=== PATIENT | female | born 1970 | race Caucasian/White ===

== ENCOUNTER 2021-04-19 16:43 | Emergency (ER) | payer MEDICAID, OTHER ==
[~2021-04-19] VITALS: Ht 167 cm; Wt 158.0 kg
--- NOTE | 2021-04-19 17:30 | ED GI ---
General Chief Complaint: Rect Problems Stated Complaint: RECTAL PAIN/BLEEDING Source of Information: Patient Exam Limitations: No Limitations (DAKOTA BANUELOS MD) History of Present Illness Date Seen by Provider: April 19, 2021 Time Seen by Provider: 17:15 Initial Comments Patient is a 50-year-old female who presents to the emergency department today with a chief complaint of rectal bleeding. Patient states she started noticing blood in and around her stool yesterday and had what she describes as a larger amount of bloody stool today. Patient denies any abdominal pain, nausea, vomiting or diarrhea. She does state that she has been straining to have a bowel movement over the last few days. Patient has a host of other complaints including chronic pain, swelling in her legs, fatigue. She has a physician in [facility] that is following her for her other myriad of complaints. Her primary complaint today is the blood per rectum. Patient states that she is concerned because her is currently incarcerated and unable to help her at home. She states that he is usually typically her primary caregiver and assist her with bathroom and toileting. She was concerned that she might have a sore on her rectum that was causing the bleeding. She states she has never had hemorrhoids before, she had all of her children by section and never suffered from them. No recent fevers, chills, productive cough. She is a smoker, also smokes marijuana to control her pain. As well as on Suboxone. All other review of systems reviewed and negative except as stated above. Timing/Duration: 1-2 Days Associated Symptoms: Denies Symptoms (DAKOTA BANUELOS MD) Allergies and Home Medications Patient Home Medication List Home Medication List Reviewed: Yes (DAKOTA BANUELOS MD) Review of Systems Review of Systems Constitutional: see HPI EENTM: No Symptoms Reported Cardiovascular: No Symptoms Reported Gastrointestinal: Abdomen Distended, Blood Streaked Stools, Other (Painful bowel movements) Genitourinary: No Symptoms Reported Musculoskeletal: no symptoms reported Skin: no symptoms reported Psychiatric/Neurological: Anxiety, Depressed, Other (Chronic pain issues) (DAKOTA BANUELOS MD) All Other Systems Reviewed Negative Unless Noted: Yes (DAKOTA BANUELOS MD) Past Bytwhuq-Xalbev-Ecqdkp Hx Patient Social History Alcohol Use: Denies Use Smoking Status: Current Everyday Smoker Type Used: Cigarettes Recent Hopitalizations: No (DAKOTA BANUELOS MD) Past Medical History Surgeries: Yes Breast, Section, Gallbladder Respiratory: No Cardiac: No Neurological: No Genitourinary: No Gastrointestinal: No Musculoskeletal: No Endocrine: No HEENT: No Cancer: No Psychosocial: Yes Integumentary: No (DAKOTA BANUELOS MD) Physical Exam Vital Signs Vital Signs - First Documented 04/19/21 17:00 Temp 36.3 Pulse 81 Resp 18 B/P (MAP) 125/81 (96) Pulse Ox 99 (REGINA BORGES MD) Vital Signs Capillary Refill : (DAKOTA BANUELOS MD) Height/Weight/BMI Height: '" Weight: lbs. oz. kg; BMI Method: General Appearance: WD/WN, no apparent distress Respiratory: lungs clear, normal breath sounds, no respiratory distress, no accessory muscle use Cardiovascular: regular rate, rhythm Gastrointestinal: non tender, soft, other (Morbid obesity) Rectal: normal rectal tone, heme positive stool (Trace heme positive on bedside fecal occult blood testing) Genital/Rectal: other (Normal rectal tone without external hemorrhoids noted. Patient has palpable internal hemorrhoids. No gross blood on digital rectal examination) Extremities: pedal edema Skin: normal color, warm/dry (DAKOTA BANUELOS MD) Progress/Results/Core Measures Results/Orders Lab Results Laboratory Tests Test 04/19/21 17:34 04/19/21 17:52 Range/Units White Blood Count 8.0 4.3-11.0 10^3/uL Red Blood Count 4.42 3.80-5.11 10^6/uL Hemoglobin 14.1 11.5-16.0 g/dL Hematocrit 43 35-52 % Mean Corpuscular Volume 98 80-99 fL Mean Corpuscular Hemoglobin 32 25-34 pg Mean Corpuscular Hemoglobin Concent 33 32-36 g/dL Red Cell Distribution Width 14.5 10.0-14.5 % Platelet Count 227 130-400 10^3/uL Mean Platelet Volume 10.1 9.0-12.2 fL Immature Granulocyte % (Auto) 1 % Neutrophils (%) (Auto) 55 42-75 % Lymphocytes (%) (Auto) 31 12-44 % Monocytes (%) (Auto) 7 0-12 % Eosinophils (%) (Auto) 6 0-10 % Basophils (%) (Auto) 1 0-10 % Neutrophils # (Auto) 4.4 1.8-7.8 10^3/uL Lymphocytes # (Auto) 2.5 1.0-4.0 10^3/uL Monocytes # (Auto) 0.6 0.0-1.0 10^3/uL Eosinophils # (Auto) 0.5 H 0.0-0.3 10^3/uL Basophils # (Auto) 0.1 0.0-0.1 10^3/uL Immature Granulocyte # (Auto) 0.1 0.0-0.1 10^3/uL Sodium Level 138 135-145 MMOL/L Potassium Level 4.0 3.6-5.0 MMOL/L Chloride Level 100 98-107 MMOL/L Carbon Dioxide Level 22 21-32 MMOL/L Anion Gap 16 H 5-14 MMOL/L Blood Urea Nitrogen 19 H 7-18 MG/DL Creatinine 1.26 0.60-1.30 MG/DL Estimat Glomerular Filtration Rate 45 BUN/Creatinine Ratio 15 Glucose Level 91 70-105 MG/DL Calcium Level 10.0 8.5-10.1 MG/DL (REGINA BORGES MD) Vital Signs/I&O 04/19/21 17:00 Temp 36.3 Pulse 81 Resp 18 B/P (MAP) 125/81 (96) Pulse Ox 99 (REGINA BORGES MD) Progress Progress Note : Progress Note 1800: Assumed care of the patient from Dr. Banuelos pending labs. Patient resting comfortably in bed. Monitor patient. 184: Labs reviewed and showed no significant findings. I did address this with the patient. She is still resting comfortably without complaint of pain. We did discuss constipation issues and concerns for internal hemorrhoids. I also did discuss with her the importance of close follow-up with the surgeon for possible colonoscopy if indicated given her history and presentation. Patient states that she would. S he is transferring here from [place] and transferring her medical care as well. Discharged home with return precautions. Patient verbalized understanding of instructions and agreement with plan. (REGINA BORGES MD) Departure Impression Primary Impression: Hemorrhoids Qualified Codes: K64.9 - Unspecified hemorrhoids Additional Impressions: Constipation Qualified Codes: K59.00 - Constipation, unspecified Rectal bleeding Disposition: HOME, SELF-CARE Condition: Improved Departure-Patient Inst. Decision time for Depature: 18:53 (REGINA BORGES MD) Referrals: JOHN BROOKS,LOCAL PHYSICIAN (PCP) Primary Care Physician [facility] Patient Instructions: Gastrointestinal Bleeding (DC), Hemorrhoids (DC), Constipation, Adult ED Add. Discharge Instructions: All discharge instructions reviewed with patient and/or family. Voiced understanding. You may use MiraLAX or the generic 1 capful twice daily for 3 days and then 1 capful daily thereafter to keep stools soft. You may increase or decrease the dose to keep stools in normal range. Drink plenty of fluids and eat a high- fiber diet. It is very important that you follow-up with the surgeon listed or of your choosing for recheck and further evaluation including possible colonoscopy if indicated. Establish care here. Keep appointment in [place] as previously scheduled. Return for worse pain, vomiting, increased bleeding in your stool or other concerns as needed. DAKOTA BANUELOS MD April 19, 2021 17:30 REGINA BORGES MD April 19, 2021 18:55
[2021-04-19 17:40] LABS: BASOPHILS # (AUTO) 0.1 10^3/uL (0.0-0.1); BASOPHILS % (AUTO) 1 % (0-10); EOSINOPHILS # (AUTO) 0.5 10^3/uL (0.0-0.3); EOSINOPHILS % (AUTO) 6 % (0-10); HEMATOCRIT 43 % (35-52); HEMOGLOBIN 14.1 g/dL (11.5-16.0); LYMPHOCYTES # (AUTO) 2.5 10^3/uL (1.0-4.0); LYMPHOCYTES % (AUTO) 31 % (12-44); MEAN CORPUSCULAR HEMOGLOBIN 32 pg (25-34); MEAN CORPUSCULAR HGB CONC 33 g/dL (32-36); MEAN CORPUSCULAR VOLUME 98 fL (80-99); MEAN PLATELET VOLUME 10.1 fL (9.0-12.2); MONOCYTES # (AUTO) 0.6 10^3/uL (0.0-1.0); MONOCYTES % (AUTO) 7 % (0-12); NEUTROPHILS # (AUTO) 4.4 10^3/uL (1.8-7.8); NEUTROPHILS % (AUTO) 55 % (42-75); PLATELET COUNT 227 10^3/uL (130-400)
[2021-04-19 18:13] LABS: CREATININE SERUM 1.26 MG/DL (0.60-1.30)
[2021-04-19 19:06] VITALS: BP 120/80
== END 2021-04-19 19:06 | disposition home or self-care (01) ==
LOC: ER 16:46
DX: K64.8 Other hemorrhoids (principal); K59.00 Constipation, unspecified; F17.210 Nicotine dependence, cigarettes, uncomplicated
CPT/HCPCS: 36415; 80048; 82274; 85025

== ENCOUNTER 2021-04-27 10:52 | Emergency (ER) | payer MEDICAID ==
[~2021-04-27] VITALS: Ht 170.2 cm; Wt 176.0 kg
[2021-04-27] MEDS ORDERED: fentaNYL INJ 100 MCG/2 ML AMP IVP ONE (12:00)
[2021-04-27 12:51] LABS: BASOPHILS % (AUTO) 0 % (0-10); EOSINOPHILS # (AUTO) 0.2 10^3/uL (0.0-0.3); EOSINOPHILS % (AUTO) 1 % (0-10); HEMATOCRIT 38 % (35-52); HEMOGLOBIN 12.6 g/dL (11.5-16.0); LYMPHOCYTES # (AUTO) 1.6 10^3/uL (1.0-4.0); LYMPHOCYTES % (AUTO) 12 % (12-44); MEAN CORPUSCULAR HEMOGLOBIN 32 pg (25-34); MEAN CORPUSCULAR HGB CONC 33 g/dL (32-36); MEAN CORPUSCULAR VOLUME 97 fL (80-99); MEAN PLATELET VOLUME 10.1 fL (9.0-12.2); MONOCYTES # (AUTO) 0.8 10^3/uL (0.0-1.0); MONOCYTES % (AUTO) 6 % (0-12); NEUTROPHILS % (AUTO) 79 % (42-75); PLATELET COUNT 203 10^3/uL (130-400); WHITE BLOOD COUNT 12.7 10^3/uL (4.3-11.0)
[2021-04-27 12:57] LABS: ALBUMIN 4.4 GM/DL (3.2-4.5); POTASSIUM 4.7 MMOL/L (3.6-5.0)
[2021-04-27 12:58] LABS: CALCIUM 9.6 MG/DL (8.5-10.1)
[2021-04-27 13:00] LABS: TOTAL PROTEIN 9.3 GM/DL (6.4-8.2)
[2021-04-27 13:01] LABS: BILIRUBIN,TOTAL 0.9 MG/DL (0.1-1.0)
[2021-04-27 13:03] LABS: CREATININE SERUM 1.43 MG/DL (0.60-1.30)
[2021-04-27] MEDS ORDERED: PIPERACILLIN SODIUM/TAZOBACTAM 4.5 GM in NS (IVPB) 100 ML IV ONE (14:30)
[2021-04-27] MEDS ORDERED: NS IV 1000 ML 1,000 ML IV SCH (14:30)
[2021-04-27] MEDS ORDERED: VANCOMYCIN INJECTION 1,000 MG in NS (IVPB) 250 ML IV SCH (14:30)
[2021-04-27 14:35] LABS: INR 0.9 (0.8-1.4); PROTHROMBIN TIME PATIENT 12.5 SEC (12.2-14.7)
[2021-04-27 14:50] LABS: BILIRUBIN,URINE NEGATIVE (NEGATIVE); CLARITY,URINE CLOUDY; COLOR,URINE YELLOW; GLUCOSE, URINE (UA) NEGATIVE (NEGATIVE); KETONES,URINE NEGATIVE (NEGATIVE); LEUKOCYTE ESTERASE ,URINE 3+ (NEGATIVE); NITRITE,URINE POSITIVE (NEGATIVE); PH,URINE 6.5 (5-9); PROTEIN,URINE 2+ (NEGATIVE)
--- NOTE | 2021-04-27 14:55 | Diagnostic Imaging Report ---
INDICATION: Sepsis COMPARISON: None available TECHNIQUE: Single frontal radiograph of the chest dated 04/27/2021 FINDINGS: The cardiac silhouette is within normal limits in size. No significant pulmonary vascular congestion. The left lung is clear. Minimal right basilar interstitial opacities. No significant pleural effusion. No pneumothorax. No acute osseous abnormality. IMPRESSION: Minimal right basilar atelectasis and/or pneumonitis. Dictated by: Dictated on workstation # [id number]
[2021-04-27 15:02] LABS: BACTERIA,URINE LARGE /HPF; RBC,URINE TNTC /HPF; WBC,URINE >100 /HPF
[2021-04-27 15:03] LABS: AMORPHOUS SEDIMENT,UR FEW AMOR PHOSPHATE /LPF; CALCIUM OXALATE CRYSTALS,UR MODERATE /LPF
[2021-04-27] MEDS ORDERED: CEPH500T PO (15:44)
[2021-04-27] MEDS ORDERED: SULF1TAB35 PO (15:44)
--- NOTE | 2021-04-27 15:45 | ED Lower Extremity ---
General Chief Complaint: Lower Extremity Stated Complaint: PAIN IN LEGS Nursing Triage Note: PT TO TRIAGE WITH C/O BILAT LOWER LEG SWELLING. PT STATES THAT THIS IS A CHRONIC CONDITION BUT IT HAS GOTTEN WORSE. Nursing Sepsis Screen: No Definite Risk Source: patient Exam Limitations: no limitations History of Present Illness Date Seen by Provider: Apr 27, 2021 Time Seen by Provider: 11:45 Initial Comments This 50-year-old woman presents to emergency room with primary complaint of lower extremity pain, swelling, and erythema that has been worsening for months but is acutely worse in the past few days. She denies fever. She has recently moved to the [facility] from the [facility] to be near family. She has essentially been homeless for about a year and has been sleeping in a trailer. She now has temporary housing in a hotel through an assistance program. She denies fever. She has had blood in her stools recently also. She reports having history of cellulitis of the lower extremities in the past. Her primary care provider in [place] is Dr. Montenegro. She was previously on Suboxone therapy but was too somnolent with Suboxone. She has recently been changed to hydrocodone for treatment of her chronic pain. She is minimally ambulatory with a walker due to edema and morbid obesity. Allergies and Home Medications Allergies Coded Allergies: povidone-iodine (Verified Allergy, Unknown, 04/27/21) soap (Verified Allergy, Unknown, 04/27/21) Home Medications Cephalexin 500 Mg Tablet, 500 MG PO QID Prescribed by: JAQUAN SAUL on 04/27/21 1544 Sulfamethoxazole/Trimethoprim 1 Each Tablet, 1 EACH PO BID Prescribed by: JAQUAN SAUL on 04/27/21 1544 Patient Home Medication List Home Medication List Reviewed: Yes Review of Systems Constitutional: no symptoms reported EENTM: other (chronic left facial droop) Respiratory: no symptoms reported Cardiovascular: no symptoms reported Gastrointestinal: see HPI Genitourinary: no symptoms reported : No Musculoskeletal: see HPI Skin: no symptoms reported Psychiatric/Neurological: Other (chronic left facial weakness ) Past Kgiztyu-Olocrx-Vncnnp Hx Past Med/Social Hx: Reviewed Nursing Past Med/Soc Hx Patient Social History Alcohol Use: Denies Use Drug of Choice: POT Smoking Status: Current Everyday Smoker Type Used: Cigarettes Recent Infectious Disease Expo: No Recent Hopitalizations: No Seasonal Allergies Seasonal Allergies: No Past Medical History Surgeries: Yes Breast, Section, Gallbladder Respiratory: No Cardiac: No Neurological: Yes Parkinson's Disease, Stroke Genitourinary: No Gastrointestinal: No Musculoskeletal: Yes (Chronic pain) Endocrine: Yes (Morbid obesity) HEENT: No Cancer: No Psychosocial: Yes Integumentary: Yes (cellulitis) Physical Exam Vital Signs Vital Signs - First Documented 04/27/21 04/27/21 11:09 16:02 Temp 36.9 Pulse 95 Resp 19 B/P (MAP) 138/85 (102) Pulse Ox 95 O2 Delivery Room Air Capillary Refill : Less Than 3 Seconds Height, Weight, BMI Height: '" Weight: lbs. oz. 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) Skin: warm/dry, other (erythema and heat of lower legs) Progress/Results/Core Measures Results/Orders Lab Results Laboratory Tests Test 04/27/21 12:44 04/27/21 13:38 04/27/21 14:40 Range/Units White Blood Count 12.7 H 4.3-11.0 10^3/uL Red Blood Count 3.92 3.80-5.11 10^6/uL Hemoglobin 12.6 11.5-16.0 g/dL Hematocrit 38 35-52 % Mean Corpuscular Volume 97 80-99 fL Mean Corpuscular Hemoglobin 32 25-34 pg Mean Corpuscular Hemoglobin Concent 33 32-36 g/dL Red Cell Distribution Width 14.6 H 10.0-14.5 % Platelet Count 203 130-400 10^3/uL Mean Platelet Volume 10.1 9.0-12.2 fL Immature Granulocyte % (Auto) 1 % Neutrophils (%) (Auto) 79 H 42-75 % Lymphocytes (%) (Auto) 12 12-44 % Monocytes (%) (Auto) 6 0-12 % Eosinophils (%) (Auto) 1 0-10 % Basophils (%) (Auto) 0 0-10 % Neutrophils # (Auto) 10.0 H 1.8-7.8 10^3/uL Lymphocytes # (Auto) 1.6 1.0-4.0 10^3/uL Monocytes # (Auto) 0.8 0.0-1.0 10^3/uL Eosinophils # (Auto) 0.2 0.0-0.3 10^3/uL Basophils # (Auto) 0.0 0.0-0.1 10^3/uL Immature Granulocyte # (Auto) 0.1 0.0-0.1 10^3/uL Sodium Level 139 135-145 MMOL/L Potassium Level 4.7 3.6-5.0 MMOL/L Chloride Level 101 98-107 MMOL/L Carbon Dioxide Level 24 21-32 MMOL/L Anion Gap 14 5-14 MMOL/L Blood Urea Nitrogen 21 H 7-18 MG/DL Creatinine 1.43 H 0.60-1.30 MG/DL Estimat Glomerular Filtration Rate 39 BUN/Creatinine Ratio 15 Glucose Level 112 H 70-105 MG/DL Calcium Level 9.6 8.5-10.1 MG/DL Corrected Calcium 9.3 8.5-10.1 MG/DL Total Bilirubin 0.9 0.1-1.0 MG/DL Aspartate Amino Transf (AST/SGOT) 38 H 5-34 U/L Alanine Aminotransferase (ALT/SGPT) 28 0-55 U/L Alkaline Phosphatase 41 40-136 U/L C-Reactive Protein High Sensitivity 3.31 H 0.00-0.50 MG/DL B-Type Natriuretic Peptide < 10.0 <100.0 PG/ML Total Protein 9.3 H 6.4-8.2 GM/DL Albumin 4.4 3.2-4.5 GM/DL Prothrombin Time 12.5 12.2-14.7 SEC INR Comment 0.9 0.8-1.4 Activated Partial Thromboplast Time 20 L 24-35 SEC D-Dimer 0.96 H 0.00-0.49 UG/ML Urine Color YELLOW Urine Clarity CLOUDY Urine pH 6.5 5-9 Urine Specific [place] 1.010 L 1.016-1.022 Urine Protein 2+ H NEGATIVE Urine Glucose (UA) NEGATIVE NEGATIVE Urine Ketones NEGATIVE NEGATIVE Urine Nitrite POSITIVE H NEGATIVE Urine Bilirubin NEGATIVE NEGATIVE Urine Urobilinogen 0.2 < = 1.0 MG/DL Urine Leukocyte Esterase 3+ H NEGATIVE Urine RBC (Auto) 3+ H NEGATIVE Urine RBC TNTC H /HPF Urine WBC >100 H /HPF Urine Squamous Epithelial Cells 2-5 /HPF Urine Renal Epithelial Cells 2-5 /HPF Urine Crystals PRESENT H /LPF Urine Calcium Oxalate Crystals MODERATE H /LPF Urine Amorphous Sediment FEW ANTONIA PHOSPHATE H /LPF Urine Bacteria LARGE H /HPF Urine Casts NONE /LPF Urine Mucus NEGATIVE /LPF Urine Culture Indicated CULTURE PENDING My Orders Orders - JAQUAN LEVY MD BNP (04/27/21 11:55) Cbc With Automated Diff (04/27/21 11:55) Comprehensive Metabolic Panel (04/27/21 11:55) Hs C Reactive Protein (04/27/21 11:55) Fibrin Degradation Products (04/27/21 11:55) Ed Iv/Invasive Line Start (04/27/21 11:55) Fentanyl Inj (Sublimaze Injection) (04/27/21 12:00) Urinalysis (04/27/21 14:21) Urine Culture (04/27/21 14:21) Protime With Inr (04/27/21 14:21) Partial Thromboplastin Time (04/27/21 14:21) Chest 1 View, Ap/Pa Only (04/27/21 14:21) Vital Signs Adult Sepsis Patie Q15M (04/27/21 14:21) Remove Rings In Anticipation O (04/27/21 14:21) Ns Iv 1000 Ml (Sodium Chloride 0.9%) (04/27/21 14:30) Piperacillin Sodium/Tazobactam (Zosyn Vi (04/27/21 14:30) Vancomycin Injection (Vancomycin Injecti (04/27/21 14:30) Cefepime Injection (Maxipime Injection) (04/27/21 16:00) Ceftriaxone For Im Use (Rocephin For Im (04/27/21 16:00) Lidocaine 1% Inj 20 Ml (Xylocaine 1% Inj (04/27/21 16:00) Medications Given in ED Vital Signs/I&O 04/27/21 04/27/21 11:09 16:02 Temp 36.9 Pulse 95 73 Resp 19 18 B/P (MAP) 138/85 (102) 166/64 Pulse Ox 95 O2 Delivery Room Air Room Air Blood Pressure Mean: 102 Progress Progress Note : Progress Note Patient technically met criteria for sepsis with leukocytosis and tachycardia associated with cellulitis and urinary tract infection. She also had an elevat ed D-dimer and ultrasound was not available at the time D-dimer was resulted to evaluate for DVT. Admission was recommended, but patient elected to leave AGAINST MEDICAL ADVICE. She stated she would lose her housing situation if she did not stay the night in her assigned room. She was treated with a Rocephin injection. Antibiotics were prescribed and patient signed out AGAINST MEDICAL ADVICE. Diagnostic Imaging Diagonstic Imaging: Xray Plain Films/CT/US/NM/MRI: chest Comments NAME: SASCHA KELLY [facility] REC#: [id number] PT STATUS: DEP ER : 1970 PHYSICIAN: JAQUAN LEVY MD ADMIT DATE: 04/27/21/ER Signed Date of Exam:04/27/21 CHEST 1 VIEW, AP/PA ONLY INDICATION: Sepsis COMPARISON: None available TECHNIQUE: Single frontal radiograph of the chest dated 04/27/2021 FINDINGS: The cardiac silhouette is within normal limits in size. No significant pulmonary vascular congestion. The left lung is clear. Minimal right basilar interstitial opacities. No significant pleural effusion. No pneumothorax. No acute osseous abnormality. IMPRESSION: Minimal right basilar atelectasis and/or pneumonitis. Dictated by: Dictated on workstation # [id number] Dict: 04/27/21 1450 Trans: 04/27/21 175 [facility] [id number] Interpreted by: AMY SRIVASTAVA MD Electronically signed by: AMY SRIVASTAVA MD 04/27/21 175 Departure Impression Primary Impression: Sepsis Qualified Codes: A41.9 - Sepsis, unspecified organism Additional Impressions: Cellulitis of lower extremity Qualified Codes: L03.119 - Cellulitis of unspecified part of limb Urinary tract infection Qualified Codes: N39.0 - Urinary tract infection, site not specified Immobility Elevated d-dimer Disposition: HOME, SELF-CARE Condition: Improved Departure-Patient Inst. Referrals: NO,LOCAL PHYSICIAN (PCP/Family) Primary Care Physician Patient Instructions: Cellulitis (Skin Infection), Adult (DC), Urinary Tract Infection, Adult ED Add. Discharge Instructions: Admission was advised during this ER visit because of signs of sepsis, cellulitis, urinary tract infection, and unsafe in mobility. Please complete your antibiotics as prescribed. Return to care if you change your mind about admission or if symptoms worsen. All discharge instructions reviewed with patient and/or family. Voiced understanding. Scripts Sulfamethoxazole/Trimethoprim (Bactrim Ds Tablet) 1 Each Tablet 1 EACH PO BID, #14 TAB Prov: JAQUAN LEVY MD 04/27/21 Cephalexin (Cephalexin) 500 Mg Tablet 500 MG PO QID, #28 TAB Prov: JAQUAN LEVY MD 04/27/21 JAQUAN LEVY MD Apr 27, 2021 15:45
[2021-04-27] MEDS ORDERED: CEFEPIME INJECTION 1,000 MG in NS (IVPB) 50 ML IM ONE (16:00)
[2021-04-27] MEDS ORDERED: cefTRIAXone 1,000 MG/2.86 ml vial (IM ONLY) IM ONE (16:00)
[2021-04-27] MEDS ORDERED: LIDOCAINE 1% INJ 20 ML 20 ML VIAL INJ ONE (16:00)
[2021-04-27 16:02] VITALS: BP 166/64
== END 2021-04-27 16:06 | disposition home or self-care (01) ==
LOC: EDUNIT# 10:52 → ER 10:57
DX: A41.9 Sepsis, unspecified organism (principal); L03.119 Cellulitis of unspecified part of limb; N39.0 Urinary tract infection, site not specified; M62.3 Immobility syndrome (paraplegic); R79.1 Abnormal coagulation profile; E66.01 Morbid (severe) obesity due to excess calories; G20 Parkinson's disease; F17.210 Nicotine dependence, cigarettes, uncomplicated; Z91.041 Radiographic dye allergy status; Z68.44 Body mass index [BMI] 60.0-69.9, adult; Z86.73 Personal history of transient ischemic attack (TIA), and cerebral infarction without residual deficits
CPT/HCPCS: 36415; 71045; 80053; 81000; 83880; 85025; 85379; 85610; 85730; 86141; 87088

== ENCOUNTER 2021-04-28 12:52 | Observation (INO) | payer MEDICAID ==
[~2021-04-28] VITALS: Ht 170.2 cm; Wt 178.2 kg
[~2021-04-28 12:52] MED LIST: CEPH500T PO; SULF1TAB35 PO
--- NOTE | 2021-04-28 13:20 | ED General ---
General Chief Complaint: Skin/Wound Problems Stated Complaint: SEPSUS Nursing Triage Note: PT REPORTS TO ED FOR BILATERAL LEG CELLULITIS X'S ONE YEAR ON AND OFF BUT GOT WORSE A WEEK AGO. PT WAS SEEN YESTERDAY BUT CHOSE TO LEAVE DUE TO NOT THINKING CLEARLY. PT WAS BROUGHT TO ROOM 04 VIA WC BY [facility] [employer]. Nursing Sepsis Screen: No Definite Risk Source of Information: Patient Exam Limitations: No Limitations History of Present Illness Date Seen by Provider: Apr 28, 2021 Time Seen by Provider: 13:10 Initial Comments Patient is a 50-year-old female who presents to the emergency department today with a chief complaint of concern for "sepsis". Patient states that she has had redness and swelling in her lower extremities bilaterally for the last year. She states it is gotten worse in the last week. She states she has been so swollen and red that she feels like her legs are being cut off. Patient states that she is also had dysuria, urgency and frequency off and on for the last year as well and it is worsened in the last few days. She denies fevers or chills. No shortness of breath. She states she gets nauseous every time she eats and vomits. She has a primary care physician in [place] who is working up "all my medical problems". Patient states that she was seen here yesterday and told that she needed to be admitted but left AGAINST MEDICAL ADVICE. Patient saying now that she made the wrong decision and would like to be admitted. She is not currently hypotensive, she is awake alert and oriented. She is in no acute distress. All other review of systems reviewed and negative except as stated above. Timing/Duration: Constant, Getting Worse Severity: Severe Associated Systoms: Nausea/Vomiting Allergies and Home Medications Allergies Coded Allergies: Sulfa (Sulfonamide Antibiotics) (Verified Allergy, Unknown, 04/28/21) adhesive tape (Verified Allergy, Unknown, 04/28/21) povidone-iodine (Verified Allergy, Unknown, 04/27/21) soap (Verified Allergy, Unknown, 04/27/21) Home Medications Cephalexin 500 Mg Tablet, 500 MG PO QID Prescribed by: JAQUAN SAUL on 04/27/21 2115 Sulfamethoxazole/Trimethoprim 1 Each Tablet, 1 EACH PO BID Prescribed by: JAQUAN SAUL on 04/27/21 1542 Patient Home Medication List Home Medication List Reviewed: Yes Review of Systems Review of Systems Constitutional: see HPI EENTM: no symptoms reported Respiratory: no symptoms reported Cardiovascular: no symptoms reported Gastrointestinal: nausea, vomiting Genitourinary: dysuria, frequency, hesitancy : No Musculoskeletal: muscle cramps Skin: change in color, other (Redness and swelling to her bilateral lower extremities) Psychiatric/Neurological: Anxiety, Depressed All Other Systems Reviewed Negative Unless Noted: Yes Past Ceaapsg-Cswsah-Imskns Hx Patient Social History Alcohol Use: Denies Use Drug of Choice: POT Smoking Status: Current Everyday Smoker Type Used: Cigarettes Recent Infectious Disease Expo: No Recent Hopitalizations: No Seasonal Allergies Seasonal Allergies: No Past Medical History Surgeries: Yes Breast, Section, Gallbladder Respiratory: No Cardiac: No Neurological: Yes Parkinson's Disease, Stroke Genitourinary: No Gastrointestinal: No Musculoskeletal: Yes (Chronic pain) Endocrine: Yes (Morbid obesity) HEENT: No Cancer: No Psychosocial: Yes Integumentary: Yes (cellulitis) Physical Exam Vital Signs Vital Signs - First Documented 04/28/21 12:55 Temp 36.7 Pulse 97 Resp 22 B/P (MAP) 131/102 (112) Pulse Ox 94 O2 Delivery Room Air Capillary Refill : Less Than 3 Seconds Height, Weight, BMI Height: '" Weight: lbs. oz. kg; 60.00 BMI Method: General Appearance: No Apparent Distress, WD/WN, Anxious Eyes: Bilateral Eye Normal Inspection, Bilateral Eye PERRL, Bilateral Eye EOMI Neck: Normal Inspection Respiratory: Lungs Clear, Normal Breath Sounds, No Accessory Muscle Use, No Respiratory Distress Cardiovascular: Regular Rate, Rhythm Gastrointestinal: Soft, Other (Mild epigastric tenderness to palpation with a palpable epigastric hernia) Extremity: Normal Capillary Refill, Normal Range of Motion, Swelling (Bilateral lower extremity redness and swelling, 2+ pitting edema bilateral lower extremities) Neurologic/Psychiatric: Alert, Oriented x3, No Motor/Sensory Deficits, Normal Mood/Affect, enrollment eligibility representative II-XII Norm as Tested Skin: Normal Color, Warm/Dry, Other (No open wounds are noted to the bilateral lower extremities) Focused Exam Lactate Level 04/28/21 13:24: Lactic Acid Level 0.80 Lactic Acid Level Laboratory Tests Test 04/28/21 13:24 Lactic Acid Level 0.80 MMOL/L (0.50-2.00) Progress/Results/Core Measures Suspected Sepsis Recent Fever Within 48 Hours: No Infection Criteria Present: None New/Unexplained Altered Menta: No Sepsis Screen: No Definite Risk SIRS Temperature: Pulse: 97 Respiratory Rate: 22 Laboratory Tests 04/28/21 13:24: White Blood Count 14.4H Blood Pressure 131 /102 Mean: 112 04/28/21 13:24: Lactic Acid Level 0.80 Laboratory Tests 04/28/21 13:24: Creatinine 1.08, Platelet Count 212, Total Bilirubin 0.7 Results/Orders Lab Results Laboratory Tests Test 04/28/21 13:24 04/28/21 13:56 Range/Units White Blood Count 14.4 H 4.3-11.0 10^3/uL Red Blood Count 3.78 L 3.80-5.11 10^6/uL Hemoglobin 12.3 11.5-16.0 g/dL Hematocrit 37 35-52 % Mean Corpuscular Volume 97 80-99 fL Mean Corpuscular Hemoglobin 33 25-34 pg Mean Corpuscular Hemoglobin Concent 34 32-36 g/dL Red Cell Distribution Width 14.3 10.0-14.5 % Platelet Count 212 130-400 10^3/uL Mean Platelet Volume 10.4 9.0-12.2 fL Immature Granulocyte % (Auto) 1 % Neutrophils (%) (Auto) 79 H 42-75 % Lymphocytes (%) (Auto) 12 12-44 % Monocytes (%) (Auto) 7 0-12 % Eosinophils (%) (Auto) 1 0-10 % Basophils (%) (Auto) 0 0-10 % Neutrophils # (Auto) 11.4 H 1.8-7.8 10^3/uL Lymphocytes # (Auto) 1.7 1.0-4.0 10^3/uL Monocytes # (Auto) 1.0 0.0-1.0 10^3/uL Eosinophils # (Auto) 0.1 0.0-0.3 10^3/uL Basophils # (Auto) 0.0 0.0-0.1 10^3/uL Immature Granulocyte # (Auto) 0.2 H 0.0-0.1 10^3/uL Neutrophils % (Manual) 78 % Lymphocytes % (Manual) 11 % Monocytes % (Manual) 10 % Metamyelocytes % 1 % Blood Morphology Comment NORMAL Sodium Level 140 135-145 MMOL/L Potassium Level 3.5 L 3.6-5.0 MMOL/L Chloride Level 104 98-107 MMOL/L Carbon Dioxide Level 26 21-32 MMOL/L Anion Gap 10 5-14 MMOL/L Blood Urea Nitrogen 14 7-18 MG/DL Creatinine 1.08 0.60-1.30 MG/DL Estimat Glomerular Filtration Rate 54 BUN/Creatinine Ratio 13 Glucose Level 118 H 70-105 MG/DL Lactic Acid Level 0.80 0.50-2.00 MMOL/L Calcium Level 8.9 8.5-10.1 MG/DL Corrected Calcium 8.9 8.5-10.1 MG/DL Total Bilirubin 0.7 0.1-1.0 MG/DL Aspartate Amino Transf (AST/SGOT) 25 5-34 U/L Alanine Aminotransferase (ALT/SGPT) 24 0-55 U/L Alkaline Phosphatase 40 40-136 U/L C-Reactive Protein High Sensitivity 14.91 H 0.00-0.50 MG/DL Total Protein 8.1 6.4-8.2 GM/DL Albumin 4.0 3.2-4.5 GM/DL Urine Color YELLOW Urine Clarity CLOUDY Urine pH 6.0 5-9 Urine Specific Matheny >=1.030 1.016-1.022 Urine Protein 2+ H NEGATIVE Urine Glucose (UA) NEGATIVE NEGATIVE Urine Ketones NEGATIVE NEGATIVE Urine Nitrite NEGATIVE NEGATIVE Urine Bilirubin NEGATIVE NEGATIVE Urine Urobilinogen 0.2 < = 1.0 MG/DL Urine Leukocyte Esterase 2+ H NEGATIVE Urine RBC (Auto) 3+ H NEGATIVE Urine RBC 50-100 H /HPF Urine WBC >100 H /HPF Urine Crystals NONE /LPF Urine Bacteria TRACE /HPF Urine Casts NONE /LPF Urine Mucus NEGATIVE /LPF Urine Culture Indicated YES My Orders Orders - DAKOTA BANUELOS MD Ed Iv/Invasive Line Start (04/28/21 13:16) Cbc With Automated Diff (04/28/21 13:16) Comprehensive Metabolic Panel (04/28/21 13:16) Ua Culture If Indicated (04/28/21 13:16) Blood Culture (04/28/21 13:16) Hs C Reactive Protein (04/28/21 13:16) Lactic Acid Analyzer (04/28/21 13:16) Hydrocodone/Apap 7.5/325 Tab (Lortab 7. (04/28/21 13:45) Manual Differential (04/28/21 13:24) Urine Culture (04/28/21 13:56) Ns Iv 1000 Ml (Sodium Chloride 0.9%) (04/28/21 14:30) Ceftriaxone For Iv Use (Rocephin For I (04/28/21 14:30) Ceftriaxone For Iv Use (Rocephin For I (04/28/21 15:15) Medications Given in ED Current Medications Medications Dose Ordered Sig/Yoseph Route Start Time Stop Time Status Last Admin Dose Admin Acetaminophen/ Hydrocodone Bitart 1 ea ONCE ONCE PO 04/28/21 13:45 04/28/21 13:46 DC 04/28/21 13:45 1 EA Ceftriaxone Sodium 1000 mg/ Sterile Water 10 ml @ 200 mls/hr ONCE ONCE IV 04/28/21 14:30 04/28/21 14:32 DC 04/28/21 14:50 200 MLS/HR Vital Signs/I&O 04/28/21 12:55 Temp 36.7 Pulse 97 Resp 22 B/P (MAP) 131/102 (112) Pulse Ox 94 O2 Delivery Room Air Capillary Refill : Less Than 3 Seconds Blood Pressure Mean: 112 Progress Note : Time: 15:02 Progress Note Case discussed with Dr. Vaz. Request 2 g of Rocephin to be given. Will admit observation to the medical floor at this time. Departure Communication (Admissions) Time/Spoke to Admitting Phy: 15:[address] Vaz who accepts the patient for observation admission Impression Primary Impression: Cellulitis of lower extremity Qualified Codes: L03.119 - Cellulitis of unspecified part of limb Additional Impression: Urinary tract infection Qualified Codes: N39.0 - Urinary tract infection, site not specified; R31.9 - Hematuria, unspecified Disposition: ADMITTED INPATIENT Condition: Stable Admissions Decision to Admit Reason: Admit from ER (General) Decision to Admit/Date: Apr 28, 2021 Time/Decision to Admit Time: 15:03 Departure-Patient Inst. Referrals: NO,LOCAL PHYSICIAN (PCP/Family) Primary Care Physician DAKOTA BANUELOS MD Apr 28, 2021 13:20
[2021-04-28 13:37] LABS: BASOPHILS % (AUTO) 0 % (0-10); EOSINOPHILS # (AUTO) 0.1 10^3/uL (0.0-0.3); EOSINOPHILS % (AUTO) 1 % (0-10); HEMATOCRIT 37 % (35-52); HEMOGLOBIN 12.3 g/dL (11.5-16.0); LYMPHOCYTES # (AUTO) 1.7 10^3/uL (1.0-4.0); LYMPHOCYTES % (AUTO) 12 % (12-44); MEAN CORPUSCULAR HEMOGLOBIN 33 pg (25-34); MEAN CORPUSCULAR HGB CONC 34 g/dL (32-36); MEAN CORPUSCULAR VOLUME 97 fL (80-99); MEAN PLATELET VOLUME 10.4 fL (9.0-12.2); MONOCYTES % (AUTO) 7 % (0-12); NEUTROPHILS # (AUTO) 11.4 10^3/uL (1.8-7.8); NEUTROPHILS % (AUTO) 79 % (42-75); PLATELET COUNT 212 10^3/uL (130-400); WHITE BLOOD COUNT 14.4 10^3/uL (4.3-11.0)
[2021-04-28] MEDS ORDERED: HYDROcodone/APAP 7.5 MG/325 MG (LORTAB, LORCET PLUS) TABLET PO ONE (13:45)
[2021-04-28 13:50] LABS: POTASSIUM 3.5 MMOL/L (3.6-5.0)
[2021-04-28 13:51] LABS: CALCIUM 8.9 MG/DL (8.5-10.1)
[2021-04-28 13:52] LABS: TOTAL PROTEIN 8.1 GM/DL (6.4-8.2)
[2021-04-28 13:54] LABS: BILIRUBIN,TOTAL 0.7 MG/DL (0.1-1.0)
[2021-04-28 13:56] LABS: CREATININE SERUM 1.08 MG/DL (0.60-1.30)
[2021-04-28 14:01] LABS: BILIRUBIN,URINE NEGATIVE (NEGATIVE); CLARITY,URINE CLOUDY; COLOR,URINE YELLOW; GLUCOSE, URINE (UA) NEGATIVE (NEGATIVE); KETONES,URINE NEGATIVE (NEGATIVE); LEUKOCYTE ESTERASE ,URINE 2+ (NEGATIVE); NITRITE,URINE NEGATIVE (NEGATIVE); PROTEIN,URINE 2+ (NEGATIVE)
[2021-04-28 14:10] LABS: RBC,URINE 50-100 /HPF; WBC,URINE >100 /HPF
[2021-04-28 14:11] LABS: BACTERIA,URINE TRACE /HPF
[2021-04-28] MEDS ORDERED: NS IV 1000 ML 1,000 ML IV SCH (14:30)
[2021-04-28] MEDS ORDERED: cefTRIAXone 1,000 MG in WATER (STERILE) FOR INJECTION 10 ML IV ONE ×2 (14:30→15:15)
[2021-04-28 14:32] LABS: LYMPHOCYTES % (MANUAL) 11 %; METAMYELOCYTES % 1 %; MONOCYTES % (MANUAL) 10 %; NEUTROPHILS % (MANUAL) 78 %; RBC MORPH NORMAL
[2021-04-28] MEDS: NS IV 1000 ML 1,000 ML IV SCH (17:00)
[2021-04-28 17:01] VITALS: BP 105/80
[2021-04-28] MEDS ORDERED: RT-ALBUTEROL/IPRATROPIUM 3 ML (DUONEB) VIAL INH PRN (17:15)
[2021-04-28 18:31] VITALS: BP 154/76
[2021-04-28] MEDS ORDERED: ALPRAZolam 1 MG (XANAX) TAB PO PRN (19:00)
[2021-04-28] MEDS ORDERED: ANTACID SUSP 30 ML UDC (MYLANTA) PO PRN (19:00)
[2021-04-28] MEDS ORDERED: ONDANSETRON 4 MG/2 ML (SDV) Z0FRAN IV PRN (19:00)
[2021-04-28] MEDS ORDERED: ONDANSETRON 4 MG (ZOFRAN) ORAL DISSOLVE TAB PO PRN (19:00)
[2021-04-28] MEDS ORDERED: BISACODYL 10 MG SUPP (DULCOLAX) PR PRN (19:00)
[2021-04-28] MEDS ORDERED: polyethylene glycoL POWDER 17 GM (MIRALAX) PACK PO PRN (19:00)
[2021-04-28] MEDS ORDERED: diphenhydrAMINE 25 MG TAB (BENADRYL) PO PRN (19:00)
[2021-04-28] MEDS ORDERED: ACETAMINOPHEN 325 MG TABLET PO PRN (19:00)
[2021-04-28] MEDS ORDERED: MELATONIN 3 MG TABLET PO PRN (19:00)
[2021-04-28 19:19] VITALS: BP 129/90
[2021-04-28] MEDS: RT-ALBUTEROL/IPRATROPIUM 3 ML (DUONEB) VIAL INH SCH (19:54)
[2021-04-28] MEDS: inSUlin ASPART (NovoLOG) 1 UNIT/0.01 ML (CHARGE PER UNIT) SC SCH (20:31)
[2021-04-28] MEDS: CYCLOBENZAPRINE 10 MG (FLEXERIL) TAB PO SCH (20:34)
[2021-04-28] MEDS: doxAzosin 4 MG (CARDURA) TAB PO SCH (20:34)
[2021-04-28] MEDS: FAMOTIDINE 20 MG (PEPCID) TABLET PO SCH (20:34)
[2021-04-28] MEDS: ENOXAPARIN 60 MG/0.6 ML (LOVENOX) SYR SC SCH (20:35)
[2021-04-28] MEDS: DOCUSATE SODIUM 100 MG (COLACE) CAP PO SCH (20:36)
[2021-04-28] MEDS: SENNOSIDES 8.6 MG (SENOKOT) TAB PO SCH (20:36)
[2021-04-28 23:21] VITALS: BP 124/56
[2021-04-29] MEDS: NS IV 1000 ML 1,000 ML IV SCH ×2 (02:02→12:47)
[2021-04-29 04:00] VITALS: BP 106/56
[2021-04-29 05:19] LABS: BASOPHILS % (AUTO) 0 % (0-10); EOSINOPHILS # (AUTO) 0.2 10^3/uL (0.0-0.3); EOSINOPHILS % (AUTO) 2 % (0-10); HEMATOCRIT 37 % (35-52); LYMPHOCYTES # (AUTO) 1.4 10^3/uL (1.0-4.0); LYMPHOCYTES % (AUTO) 17 % (12-44); MEAN CORPUSCULAR HEMOGLOBIN 32 pg (25-34); MEAN CORPUSCULAR HGB CONC 33 g/dL (32-36); MEAN CORPUSCULAR VOLUME 98 fL (80-99); MEAN PLATELET VOLUME 10.2 fL (9.0-12.2); MONOCYTES # (AUTO) 0.5 10^3/uL (0.0-1.0); MONOCYTES % (AUTO) 6 % (0-12); NEUTROPHILS # (AUTO) 6.3 10^3/uL (1.8-7.8); NEUTROPHILS % (AUTO) 74 % (42-75); PLATELET COUNT 195 10^3/uL (130-400); WHITE BLOOD COUNT 8.5 10^3/uL (4.3-11.0)
[2021-04-29 05:42] LABS: CALCIUM 8.7 MG/DL (8.5-10.1); CREATININE SERUM 1.11 MG/DL (0.60-1.30); MAGNESIUM 1.9 MG/DL (1.6-2.4); POTASSIUM 3.4 MMOL/L (3.6-5.0)
[2021-04-29] MEDS: MAGNESIUM 1 GM/100 ML IVPB 100 ML IV SCH (05:50)
[2021-04-29] MEDS: KCL 20 MEQ TAB (K-DUR) PO SCH (05:51)
[2021-04-29] MEDS: POTASSIUM CL 10MEQ/50ML IVPB 50 ML IV SCH (05:51)
[2021-04-29] MEDS ORDERED: KCL 20 MEQ TAB (K-DUR) PO ONE (06:00)
[2021-04-29] MEDS: VENlafaxine XR 75 MG (EFFEXOR XR) CAP PO SCH (06:39)
[2021-04-29] MEDS: inSUlin ASPART (NovoLOG) 1 UNIT/0.01 ML (CHARGE PER UNIT) SC SCH ×4 (06:39→21:30)
[2021-04-29] MEDS: LEVOTHYROXINE 150 MCG (LEVOTHROID) TAB PO SCH (06:40)
[2021-04-29] MEDS: RT-ALBUTEROL/IPRATROPIUM 3 ML (DUONEB) VIAL INH SCH ×2 (07:30→18:45)
[2021-04-29 08:00] VITALS: BP 132/87
--- NOTE | 2021-04-29 08:50 | Consultation-Cardiology ---
HPI-Cardiology Cardiology Consultation: Date of Consultation 04/29/21 Time Seen by a Provider: 08:50 Date of Admission 04-28-21 Attending Physician Saroj Alarcon MD Admitting Physician No,Local Physician Consulting Physician CRISTOFER ANDRADE HPI: Chief Complaint: Chest pain Ms. Jhaveri is a 50 yr old female admitted to 423 from the ED d/t LE cellulitis. This morning she had an episode of chest pain, sharp, stabbing, lasting a few seconds which radiated across her chest. She has chronic dyspnea which she feels has been worse over the last few weeks. I woke her up from son [facility]ol [facility]antana to obtain HPI. She states she was not having chest pain until I woke her up and then requested I leave her alone so she can sleep. I again attempted to obtained her health information. She sat up in bed yelling, rubbing across her chest and used profane language requesting I leave and rolling over on her side yelling she was having sharp chest pain again. She refused to answer any further questions. I then left the room. I went to return to the room approx 2-3 minutes later and she was lying on her back sleeping with no visible signs of distress. Review of Systems-Cardiology Review of Systems : No Other comments D/t pt being uncooperative the ROS to the extent it could be obtained is as per HPI All Other Systems Reviewed Negative Unless Noted: Yes QBJ-Aabgwa-Qiquzn Hx Patient Social History Smoking Status: Current Everyday Smoker Alcohol Use?: Yes Substance type: Marijuana Pt feels they are or have been: No Tobacco type used: Cigarettes Past Medical History PMH As described under Assessment. Family Medical History Family Medical History: Unable to obtain Allergies and Home Medications Allergies Coded Allergies: Sulfa (Sulfonamide Antibiotics) (Verified Allergy, Unknown, 04/28/21) adhesive tape (Verified Allergy, Unknown, 04/28/21) povidone-iodine (Verified Allergy, Unknown, 04/27/21) soap (Verified Allergy, Unknown, 04/27/21) Home Medications Alprazolam 1 Mg Tablet, 1 MG PO TID PRN for ANXIETY, (Reported) Last Action: Reviewed Amlodipine Besylate 5 Mg Tablet, 5 MG PO DAILY, (Reported) Last Action: Reviewed Cefdinir 300 Mg Capsule, 300 MG PO BID Prescribed by: SAROJ ALARCON on 04/30/21958 Cyclobenzaprine HCl 10 Mg Tablet, 10 MG PO TID PRN for MUSCLE SPASMS, (Reported) Last Action: Reviewed Famotidine 20 Mg Tablet, 20 MG PO BID, (Reported) Last Action: Reviewed Hydrocodone/Acetaminophen 1 Each Tablet, 1 EA PO BID PRN for PAIN-MODERATE (5- 7), (Reported) Last Action: Reviewed Ibuprofen 200 Mg Tablet, 400-600 MG PO Q8H PRN for PAIN-MILD (1-4), (Reported) Last Action: Reviewed Levothyroxine Sodium 300 Mcg Tablet, 300 MCG PO DAILY, (Reported) Last Action: Reviewed Pantoprazole Sodium 40 Mg Tablet.dr, 40 MG PO DAILY Prescribed by: SAROJ ALARCON on 04/30/21958 Prazosin HCl 2 Mg Capsule, 2 MG PO DAILY, (Reported) Last Action: Reviewed Venlafaxine HCl 150 Mg Cap.er.24h, 300 MG PO DAILY, (Reported) TAKES 2 (150MG) CAPS Last Action: Reviewed Physical Exam-Cardiology Physical Exam Vital Signs/I&O 04/29/21 04/30/21 04/30/21 04/30/21 23:59 04:37 07:13 07:30 Temp 35.7 35.8 35.8 Pulse 69 67 65 Resp 18 18 14 B/P (MAP) 129/69 (89) 132/96 (108) 114/57 (76) Pulse Ox 93 93 93 95 O2 Delivery Room Air Room Air Room Air Room Air 04/30/21 00:00 Intake Total 2045 ml Output Total 1600 ml Balance 445 ml Capillary Refill : Less Than 3 Seconds Constitutional: AAO x 3, well-developed, well-nourished HEENT: hearing is well preserved Neck: No carotid bruit; carotid pulses are 2 + bilaterally Respiratory: chest expansion is symmetric, chest is bilaterally symmetric, rhonchi (scattered) Cardiovascular: regular rate-rhythm, S1 and S2 Gastrointestinal: audible bowel sounds Extremities: other (bilat LE swelling with redness and warmth to the touch) Neurologic/Psychiatric: grossly intact (moves all extremities) Skin: No rash on exposed areas, No ulcerations on exposed areas; other (see above) Data Review Labs Laboratory Tests 04/29/21 11:16: Glucometer 90 04/29/21 11:32: Troponin I < 0.028 04/29/21 15:50: Glucometer 99 04/29/21 21:30: Glucometer 105 04/30/21 05:00: Sodium Level 140, Potassium Level 3.9, Chloride Level 105, Carbon Dioxide Level 25, Anion Gap 10, Blood Urea Nitrogen 11, Creatinine 0.94, Estimat Glomerular Filtration Rate > 60, BUN/Creatinine Ratio 12, Glucose Level 93, Calcium Level 8.6, Magnesium Level 2.1 04/30/21 05:18: Glucometer 102 Microbiology 04/28/21 Urine Culture - Final, Complete >=3 Gram Positive Isolates 04/28/21 Blood Culture - Preliminary, Resulted Gram Positive Cocci ECG Impression ECG Initial ECG Rhythm: Normal Sinus A/P-Cardiology Assessment/Admission Diagnosis Chest pain of undetermined etiology Bilat LE cellulitis - management per medical services Morbid obesity GERD Tobaccoism Discussion and Recomendations Chest pain of undetermined etiology - no evidence of ACS thus far Cellulitis of bilat LE - management per medical services Start PPI and H2 radha Monitor lab Replace electrolytes as indicated Further recs will be based on her hospital course We would like to thank medical services for this consult CRISTOFER DONNELLY Apr 29, 2021 08:50
[2021-04-29] MEDS ORDERED: PANTOPRAZOLE 40 MG (PROTONIX) VIAL IV ONE (09:00)
[2021-04-29] MEDS: CYCLOBENZAPRINE 10 MG (FLEXERIL) TAB PO SCH ×3 (09:38→21:28)
[2021-04-29] MEDS: ENOXAPARIN 60 MG/0.6 ML (LOVENOX) SYR SC SCH ×2 (09:38→21:28)
[2021-04-29] MEDS: FAMOTIDINE 20 MG (PEPCID) TABLET PO SCH ×4 (09:39→21:29)
[2021-04-29] MEDS: amLODIPine 5 MG (NORVASC) TAB PO SCH (09:39)
[2021-04-29] MEDS: DOCUSATE SODIUM 100 MG (COLACE) CAP PO SCH ×2 (09:40→21:29)
[2021-04-29] MEDS: SENNOSIDES 8.6 MG (SENOKOT) TAB PO SCH ×2 (09:40→21:29)
--- NOTE | 2021-04-29 11:26 | History & Physical-Hospitalist ---
History of Present Illness HPI/Chief Complaint Brianne Jhaveri is a 50 year old female with PMH HTN, hypothyroidism, GERD, chronic pain, anxiety, super-super obesity, who presented with bilateral lower extremity swelling. She is irritable and uncooperative so obtaining history was difficult. She has been having leg swelling for a year. She says they have worsened over the past week. They are very tender. They are red and warm. She denies fevers and chills. She has had chest pain this morning. She thinks it is acid reflux. She denies trouble breathing. She reports dysuria, frequency, and urgency. She reports having diarrhea several days ago. She is from [place] and has a PCP there. She is moving to [place] but says she will continue to follow with her physician there. She is angry and threatening to leave against medical advice. Source: patient Exam Limitations: no limitations Date Seen 04/29/21 Time Seen by a Provider: 09:35 Attending Physician Ginny Alarcon MD PCP No,Local Physician Referring Physician Date of Admission Apr 28, 2021 at 15:05 Home Medications & Allergies Home Medications Reviewed patient Home Medication Reconciliation performed by pharmacy medication reconciliations collection systems technician and/or nursing. Patients Allergies have been reviewed. Allergies Allergies Coded Allergies Sulfa (Sulfonamide Antibiotics) (Verified Allergy, Unknown, 04/28/21) adhesive tape (Verified Allergy, Unknown, 04/28/21) povidone-iodine (Verified Allergy, Unknown, 04/27/21) soap (Verified Allergy, Unknown, 04/27/21) Past Ggdkstj-Wxowpf-Xnstzo Hx Patient Social History Tobacco Use?: Yes Tobacco type used: Cigarettes Smoking Status: Current Everyday Smoker Substance type: Marijuana Substance frequency: Daily Alcohol Use?: Yes Alcohol Frequency: Couple times a week Pt feels they are or have been: No Seasonal Allergies Seasonal Allergies: No Past Medical History Surgeries: Breast, Section, Gallbladder Parkinson's Disease, Stroke Family Medical History No Pertinent Family Hx Review of Systems Constitutional: no symptoms reported EENTM: no symptoms reported Respiratory: no symptoms reported Cardiovascular: chest pain Gastrointestinal: no symptoms reported Genitourinary: dysuria, frequency Musculoskeletal: no symptoms reported Skin: rash Psychiatric/Neurological: No Symptoms Reported Physical Exam Physical Exam Vital Signs Vital Signs - First Documented 6/7/21 6/7/21 12:55 17:01 Temp 36.7 Pulse 97 Resp 22 B/P (MAP) 131/102 (112) Pulse Ox 94 O2 Delivery Room Air FiO2 21 Capillary Refill : Less Than 3 Seconds Height, Weight, BMI Height: '" Weight: lbs. oz. kg; 61.51 BMI Method: General Appearance: No Apparent Distress, Obese HEENT: PERRL/EOMI, Pharynx Normal Neck: Normal Inspection, Supple Respiratory: Lungs Clear, Normal Breath Sounds, No Respiratory Distress Cardiovascular: Regular Rate, Rhythm, No Murmur Gastrointestinal: Normal Bowel Sounds, Non Tender, Soft Extremity: Inflammation, Pedal Edema, Swelling Neurologic/Psychiatric: Alert, Oriented x3, No Motor/Sensory Deficits, Other (angry, agitated, irritable, uncooperative) Skin: Erythema (warmth, tenderness of bilateral lower extremities) Results Results/Procedures Labs Laboratory Tests 04/28/21 13:24 04/29/21 05:08 Patient resulted labs reviewed. Imaging: Reviewed Imaging Report Assessment/Plan Admission Diagnosis Cellulitis of bilateral lower extremities Admission Status: Observation Assessment and Plan Cellulitis of bilateral lower extremities Lymphedema Started on Rocephin Wound care consulted UTI UA consistent with UTI Rocephin Await culture results Chest pain GERD Troponins normal Cardiology consulted, appreciate assistance PPI and H2 radha HTN Hypothyroidism Anxiety Chronic pain Continue home meds Super super obesity Clinically significant, no acute management needs Marijuana abuse Tobacco abuse Recommend cessation DVT prophylaxis: Lovenox Diagnosis/Problems Diagnosis/Problems (1) Cellulitis of lower extremity Status: Acute Qualifiers: Laterality: unspecified laterality Qualified Codes: L03.119 - Cellulitis of unspecified part of limb (2) Urinary tract infection Status: Acute Qualifiers: Urinary tract infection type: site unspecified Hematuria presence: with hematuria Qualified Codes: N39.0 - Urinary tract infection, site not specified; R31.9 - Hematuria, unspecified (3) Chest pain Status: Acute (4) GERD (gastroesophageal reflux disease) Status: Acute (5) Super-super obese Status: Chronic (6) Lymphedema Status: Acute (7) HTN (hypertension) Status: Chronic Qualifiers: Hypertension type: essential hypertension Qualified Codes: I10 - Essential (primary) hypertension (8) Hypothyroidism Status: Chronic (9) Anxiety Status: Chronic GINNY ALARCON MD Apr 29, 2021 11:26
[2021-04-29 11:45] VITALS: BP 127/76
[2021-04-29] MEDS ORDERED: IBUP-2473 PO (14:14)
[2021-04-29] MEDS ORDERED: PRAZ2CAP2 PO (14:14)
[2021-04-29] MEDS ORDERED: ALPR1TAB7 PO (14:14)
[2021-04-29] MEDS ORDERED: FAMO20TA5 PO (14:14)
[2021-04-29] MEDS ORDERED: CYCL10TA9 PO (14:14)
[2021-04-29] MEDS ORDERED: ACHD5005 PO (14:14)
[2021-04-29] MEDS ORDERED: AMLO-250 PO (14:14)
[2021-04-29] MEDS ORDERED: LEVO300T5 PO (14:14)
[2021-04-29] MEDS ORDERED: VENL150C98 PO (14:14)
--- NOTE | 2021-04-29 14:35 | Consultation-Cardiology ---
HPI-Cardiology Cardiology Consultation: Date of Consultation 04/29/21 Time Seen by a Provider: 13:45 Date of Admission Attending Physician Ginny Vaz MD Admitting Physician No,Local Physician Consulting Physician MARCIN MALAGON MD, MA, FACP, FACC, FSCAI, CCDS Physician requesting consult: Dr Vaz HPI: Chief Complaint: Chest pain HPI Ms. Jhaveri is a 50 yr old female admitted to [facility] from the ED d/t LE cell ulitis. Seen by Ledy Andrews APRN, this am: This morning she had an episode of chest pain, sharp, stabbing, lasting a few seconds which radiated across her chest. She has chronic dyspnea which she fe els has been worse over the last few weeks. I woke her up from [facility] to obtain HPI. She states she was not having chest pain until I woke her up and then requested I leave her alone so she can sleep. I again attempted to obtained her health information. She sat up in bed yelling, rubbing across her chest and used profane language requesting I leave and rolling over on her side yelling she was having sharp chest pain again. She refused to answer any further questions. I then left the room. I went to return to the room approx 2- 3 minutes later and she was lying on her back sleeping with no visible signs of distress. Seen by me at this time: Denies cp. Reports gen malaise. Denies palp or syncope. Has chronic shortness of breath. Has chronic leg swelling and vague bilat leg discomfort. No n/v/d. Gen body pains, intermittently severe, chronic Review of Systems-Cardiology Review of Systems Constitutional: As described under HPI Eyes: No vision change Ears/Nose/Throat: No ear discharge, No nasal drainage, No recent hearing loss Respiratory: As described under HPI Cardiovascular: As described under HPI Gastrointestinal: As described under HPI Genitourinary: No dysuria, No hematuria : No Musculoskeletal: As describe under HPI Skin: other (redness and swelling of both legs) Psychiatric/Neurological: No syncope Hematologic: No bleeding abnormalities All Other Systems Reviewed Negative Unless Noted: Yes [id number] Hx Patient Social History Smoking Status: Current Everyday Smoker Alcohol Use?: Yes Substance type: Marijuana Pt feels they are or have been: No Tobacco type used: Cigarettes Past Medical History PMH As described under Assessment. Family Medical History Family Medical History: Does not report fam h/o early CAD Allergies and Home Medications Allergies Coded Allergies: Sulfa (Sulfonamide Antibiotics) (Verified Allergy, Unknown, 04/28/21) adhesive tape (Verified Allergy, Unknown, 04/28/21) povidone-iodine (Verified Allergy, Unknown, 04/27/21) soap (Verified Allergy, Unknown, 04/27/21) Home Medications Alprazolam 1 Mg Tablet, 1 MG PO TID PRN for ANXIETY, (Reported) Last Action: Reviewed Amlodipine Besylate 5 Mg Tablet, 5 MG PO DAILY, (Reported) Last Action: Reviewed Cyclobenzaprine HCl 10 Mg Tablet, 10 MG PO TID PRN for MUSCLE SPASMS, (Reported) Last Action: Reviewed Famotidine 20 Mg Tablet, 20 MG PO BID, (Reported) Last Action: Reviewed Hydrocodone/Acetaminophen 1 Each Tablet, 1 EA PO BID PRN for PAIN-MODERATE (5- 7), (Reported) Last Action: Reviewed Ibuprofen 200 Mg Tablet, 400-600 MG PO Q8H PRN for PAIN-MILD (1-4), (Reported) Last Action: Reviewed Levothyroxine Sodium 300 Mcg Tablet, 300 MCG PO DAILY, (Reported) Last Action: Reviewed Prazosin HCl 2 Mg Capsule, 2 MG PO DAILY, (Reported) Last Action: Reviewed Venlafaxine HCl 150 Mg Cap.er.24h, 300 MG PO DAILY, (Reported) TAKES 2 (150MG) CAPS Last Action: Reviewed Patient Home Medication List Home Medication List Reviewed: Yes Physical Exam-Cardiology Physical Exam Vital Signs/I&O 04/29/21 04/29/21 04/29/21 04/29/21 04:00 08:00 08:00 11:45 Temp 35.6 35.3 35.4 Pulse 71 81 72 Resp 20 20 20 B/P (MAP) 106/56 (73) 132/87 (102) 127/76 (93) Pulse Ox 91 97 93 O2 Delivery Room Air Room Air Room Air Room Air 04/29/21 00:00 Intake Total 1610 ml Output Total 600 ml Balance 1010 ml Capillary Refill : Less Than 3 Seconds Constitutional: AAO x 3, well-developed, well-nourished HEENT: hearing is well preserved Neck: No carotid bruit; carotid pulses are 2 + bilaterally Respiratory: chest expansion is symmetric, chest is bilaterally symmetric, rhonchi (scattered) Cardiovascular: regular rate-rhythm, S1 and S2 Gastrointestinal: audible bowel sounds Extremities: other (bilat LE swelling with redness and warmth to the touch) Neurologic/Psychiatric: grossly intact (moves all extremities) Skin: No rash on exposed areas, No ulcerations on exposed areas; other (see above) Data Review Labs Laboratory Tests 04/28/21 20:28: Glucometer 106 04/29/21 05:08: White Blood Count 8.5, Red Blood Count 3.74L, Hemoglobin 12.0, Hematocrit 37, Mean Corpuscular Volume 98, Mean Corpuscular Hemoglobin 32, Mean Corpuscular Hemoglobin Concent 33, Red Cell Distribution Width 14.5, Platelet Count 195, Mean Platelet Volume 10.2, Immature Granulocyte % (Auto) 1, Neutrophils (%) (Auto) 74, Lymphocytes (%) (Auto) 17, Monocytes (%) (Auto) 6, Eosinophils (%) (Auto) 2, Basophils (%) (Auto) 0, Neutrophils # (Auto) 6.3, Lymphocytes # (Auto) 1.4, Monocytes # (Auto) 0.5, Eosinophils # (Auto) 0.2, Basophils # (Auto) 0.0, Immature Granulocyte # (Auto) 0.1, Sodium Level 141, Potassium Level 3.4L, Chloride Level 105, Carbon Dioxide Level 25, Anion Gap 11, Blood Urea Nitrogen 12, Creatinine 1.11, Estimat Glomerular Filtration Rate 52, BUN/Creatinine Ratio 11, Glucose Level 123H, Calcium Level 8.7, Phosphorus Level 3.0, Magnesium Level 1.9, Troponin I < 0.028 04/29/21 11:16: Glucometer 90 04/29/21 11:32: Troponin I < 0.028 Microbiology 04/28/21 Urine Culture - Final, Complete >=3 Gram Positive Isolates Laboratory Tests 04/28/21 13:24 04/29/21 05:08 A/P-Cardiology Assessment/Admission Diagnosis Chest pain of undetermined etiology, no evidence of ACS Chronic pain syndrome Bilat LE cellulitis - management per medical services Morbid obesity GERD Tobaccoism Discussion and Recomendations Echo Cellulitis of bilat LE - management per medical services Start PPI and H2 radha Monitor lab Replace electrolytes as indicated Further recs will be based on her hospital course We advise quitting smoking MARCIN MALAGON MD FACP FAC CCDS Apr 29, 2021 14:35
[2021-04-29] MEDS ORDERED: cefTRIAXone 2,000 MG/SWFI 20 ML IV PUSH IV SCH ×2 (15:00)
[2021-04-29 15:43] VITALS: BP 142/87
--- NOTE | 2021-04-29 16:25 | Wound Care Assessment ---
Wound Care Assessment Date Seen by Provider: Apr 29, 2021 Time Seen by Provider: 16:24 Chief Complaint Pain and redness of legs. HPI The patient is a 50 year old female with bilateral lower extremity lymphedema and cellulitis. The patient complains of bilateral leg pain and redness. She is on IV ceftriaxone. She is a smoker and morbidly obese with a BMI of 61. She falls asleep during the interview, consistent with VIKA. Elevation to reduce lymphedema is explained, demonstrated and recommended to the patient. If d esired we can follow her in the out-patient wound clinic after discharge. Morbid obesity Smoking Status: Current Everyday Smoker Recreational Drug Use: Yes (used marijuana just before arrival) Alcohol Use: Denies Use Review of Systems Pulmonary: No Dyspnea Cardiovascular: No: Chest Pain Exam Vital Signs Date Time Temp Pulse Resp B/P (MAP) Pulse Ox O2 Delivery O2 Flow Rate FiO2 04/29/21 15:43 35.8 61 20 142/87 (105) 94 Room Air 04/28/21 17:01 21 Capillary Refill : Less Than 3 Seconds Extremities: other (Bilateral lower extremity lymphedema and erythema.) Results Laboratory Tests 04/28/21 20:28: Glucometer 106 04/29/21 05:08: White Blood Count 8.5, Red Blood Count 3.74L, Hemoglobin 12.0, Hematocrit 37, Mean Corpuscular Volume 98, Mean Corpuscular Hemoglobin 32, Mean Corpuscular Hemoglobin Concent 33, Red Cell Distribution Width 14.5, Platelet Count 195, Mean Platelet Volume 10.2, Immature Granulocyte % (Auto) 1, Neutrophils (%) (Auto) 74, Lymphocytes (%) (Auto) 17, Monocytes (%) (Auto) 6, Eosinophils (%) (Auto) 2, Basophils (%) (Auto) 0, Neutrophils # (Auto) 6.3, Lymphocytes # (Auto) 1.4, Monocytes # (Auto) 0.5, Eosinophils # (Auto) 0.2, Basophils # (Auto) 0.0, Immature Granulocyte # (Auto) 0.1, Sodium Level 141, Potassium Level 3.4L, Chloride Level 105, Carbon Dioxide Level 25, Anion Gap 11, Blood Urea Nitrogen 12, Creatinine 1.11, Estimat Glomerular Filtration Rate 52, BUN/Creatinine Ratio 11, Glucose Level 123H, Calcium Level 8.7, Phosphorus Level 3.0, Magnesium Level 1.9, Troponin I < 0.028 04/29/21 11:16: Glucometer 90 04/29/21 11:32: Troponin I < 0.028 04/29/21 15:50: Glucometer 99 Microbiology 04/28/21 Urine Culture - Final, Complete >=3 Gram Positive Isolates 04/28/21 Blood Culture - Preliminary, Resulted No growth Microbiology 04/28/21 Urine Culture - Final, Complete >=3 Gram Positive Isolates 04/28/21 Blood Culture - Preliminary, Resulted No growth Assessment/Plan/Dx 1. Bilateral lower extremity lymphedema and cellulitis. 2. Morbid obesity Plan: agree with antibiotics and elevation as tolerated. Will be available to follow-up as out-patient for lymphedema. MANDO MENDOZA MD Apr 29, 2021 16:25
[2021-04-29 20:08] VITALS: BP 126/84
[2021-04-29] MEDS: doxAzosin 4 MG (CARDURA) TAB PO SCH (21:29)
[2021-04-29 23:59] VITALS: BP 129/69
[2021-04-30 04:37] VITALS: BP 132/96
[2021-04-30] MEDS: inSUlin ASPART (NovoLOG) 1 UNIT/0.01 ML (CHARGE PER UNIT) SC SCH ×2 (06:24→11:19)
[2021-04-30] MEDS: LEVOTHYROXINE 150 MCG (LEVOTHROID) TAB PO SCH (06:28)
[2021-04-30] MEDS: VENlafaxine XR 75 MG (EFFEXOR XR) CAP PO SCH (06:28)
[2021-04-30 06:41] LABS: CHLORIDE 105 MMOL/L (98-107); POTASSIUM 3.9 MMOL/L (3.6-5.0); SODIUM 140 MMOL/L (135-145)
[2021-04-30 06:42] LABS: CALCIUM 8.6 MG/DL (8.5-10.1)
[2021-04-30 06:43] LABS: GLUCOSE 93 MG/DL (70-105)
[2021-04-30 06:44] LABS: CARBON DIOXIDE 25 MMOL/L (21-32)
[2021-04-30 06:47] LABS: CREATININE SERUM 0.94 MG/DL (0.60-1.30); GFR ESTIMATED > 60
[2021-04-30 06:48] LABS: BUN/CREATININE RATIO 12
[2021-04-30 06:49] LABS: MAGNESIUM 2.1 MG/DL (1.6-2.4)
[2021-04-30] MEDS: RT-ALBUTEROL/IPRATROPIUM 3 ML (DUONEB) VIAL INH SCH (07:13)
[2021-04-30] MEDS: MAGNESIUM 1 GM/100 ML IVPB 100 ML IV SCH (07:15)
[2021-04-30] MEDS: KCL 20 MEQ TAB (K-DUR) PO SCH (07:15)
[2021-04-30] MEDS: POTASSIUM CL 10MEQ/50ML IVPB 50 ML IV SCH (07:15)
[2021-04-30 07:30] VITALS: BP 114/57
[2021-04-30] MEDS: ENOXAPARIN 60 MG/0.6 ML (LOVENOX) SYR SC SCH (08:52)
[2021-04-30] MEDS: DOCUSATE SODIUM 100 MG (COLACE) CAP PO SCH (08:52)
[2021-04-30] MEDS: amLODIPine 5 MG (NORVASC) TAB PO SCH (08:52)
[2021-04-30] MEDS: FAMOTIDINE 20 MG (PEPCID) TABLET PO SCH ×2 (08:52→08:53)
[2021-04-30] MEDS: CYCLOBENZAPRINE 10 MG (FLEXERIL) TAB PO SCH ×2 (08:53→13:07)
[2021-04-30] MEDS: SENNOSIDES 8.6 MG (SENOKOT) TAB PO SCH (08:53)
[2021-04-30] MEDS ORDERED: PANTOPRAZOLE 40 MG (PROTONIX) TAB PO SCH (09:00)
[2021-04-30] MEDS ORDERED: CEFD300C3 PO (09:59)
[2021-04-30] MEDS ORDERED: PANT40TA52 PO (09:59)
--- NOTE | 2021-04-30 10:13 | Progress Note - Cardiology ---
Cardiology SOAP Progress Note Subjective: Denies any c/o CP Reports frequent productive cough No c/o palpitations Feels LE discomfort is improving Objective: I&O/Vital Signs 04/29/21 04/30/21 04/30/21 04/30/21 23:59 04:37 07:13 07:30 Temp 35.7 35.8 35.8 Pulse 69 67 65 Resp 18 18 14 B/P (MAP) 129/69 (89) 132/96 (108) 114/57 (76) Pulse Ox 93 93 93 95 O2 Delivery Room Air Room Air Room Air Room Air 04/30/21 00:00 Intake Total 2045 ml Output Total 1600 ml Balance 445 ml Constitutional: AAO x 3, well-developed, well-nourished Respiratory: chest expansion is symmetric, chest is bilaterally symmetric, rhonchi (scattered) Cardiovascular: regular rate-rhythm, S1 and S2 Gastrointestional: audible bowel sounds Extremities: other (bilat LE swelling with redness and warmth to the touch) Neurologic/Psychiatric: grossly intact (moves all extremities) Skin: No rash on exposed areas, No ulcerations on exposed areas; other (see above) Results/Procedures: Labs Laboratory Tests 04/29/21 11:16: Glucometer 90 04/29/21 11:32: Troponin I < 0.028 04/29/21 15:50: Glucometer 99 04/29/21 21:30: Glucometer 105 04/30/21 05:00: Sodium Level 140, Potassium Level 3.9, Chloride Level 105, Carbon Dioxide Level 25, Anion Gap 10, Blood Urea Nitrogen 11, Creatinine 0.94, Estimat Glomerular Filtration Rate > 60, BUN/Creatinine Ratio 12, Glucose Level 93, Calcium Level 8.6, Magnesium Level 2.1 04/30/21 05:18: Glucometer 102 Microbiology 04/28/21 Urine Culture - Final, Complete >=3 Gram Positive Isolates 04/28/21 Blood Culture - Preliminary, Resulted Gram Positive Cocci A/P: Assessment: Chest pain of undetermined etiology, no evidence of ACS Chronic pain syndrome Bilat LE cellulitis - management per medical services Morbid obesity GERD Tobaccoism Plan: Echo - pending Cellulitis of bilat LE - management per medical services Continue PPI and H2 radha Monitor lab Replace electrolytes as indicated Further recs will be based on her hospital course We advise quitting smoking CRISTOFER DONNELLY Apr 30, 2021 10:13
[2021-04-30] MEDS ORDERED: ALPRAZolam 0.5 MG (XANAX) TAB PO PRN (10:45)
--- NOTE | 2021-04-30 12:42 | Progress Note - Cardiology ---
Cardiology SOAP Progress Note Subjective: No cp today Exertional shortness of breath, chronic Gen malaise and weakness No palp or syncope No n/v/d Objective: I&O/Vital Signs 04/30/21 04/30/21 04/30/21 04/30/21 04:37 07:13 07:30 08:00 Temp 35.8 35.8 Pulse 67 65 Resp 18 14 B/P (MAP) 132/96 (108) 114/57 (76) Pulse Ox 93 93 95 O2 Delivery Room Air Room Air Room Air Room Air 04/30/21 00:00 Intake Total 2045 ml Output Total 1600 ml Balance 445 ml Constitutional: AAO x 3, well-developed, well-nourished Respiratory: chest expansion is symmetric, chest is bilaterally symmetric, rhonchi (scattered) Cardiovascular: regular rate-rhythm, S1 and S2 Gastrointestional: audible bowel sounds Extremities: other (bilat LE swelling with redness and warmth to the touch) Neurologic/Psychiatric: grossly intact (moves all extremities) Skin: No rash on exposed areas, No ulcerations on exposed areas; other (see above) Results/Procedures: Labs Laboratory Tests 04/29/21 15:50: Glucometer 99 04/29/21 21:30: Glucometer 105 04/30/21 05:00: Sodium Level 140, Potassium Level 3.9, Chloride Level 105, Carbon Dioxide Level 25, Anion Gap 10, Blood Urea Nitrogen 11, Creatinine 0.94, Estimat Glomerular Filtration Rate > 60, BUN/Creatinine Ratio 12, Glucose Level 93, Calcium Level 8.6, Magnesium Level 2.1 04/30/21 05:18: Glucometer 102 Microbiology 04/28/21 Urine Culture - Final, Complete >=3 Gram Positive Isolates 04/28/21 Blood Culture - Preliminary, Resulted Probable Coag Negative Staph Laboratory Tests 04/28/21 13:24 04/29/21 05:08 04/30/21 05:00 A/P: Assessment: Chest pain of undetermined etiology, no evidence of ACS - Echo on 04/30/21: LVEF 60-65%, mild conc LVH, mild to mod LA enlargement, PASP 30-35 mmHg Chronic pain syndrome Bilat LE cellulitis - management per medical services Morbid obesity GERD Tobaccoism Plan: Cellulitis of bilat LE - management per medical services Continue PPI and H2 radha Monitor lab Replace electrolytes as indicated We advise quitting smoking MARCIN MALAGON MD FACP FAC CCDS Apr 30, 2021 12:42
[2021-04-30 13:00] VITALS: BP 114/57
--- NOTE | 2021-04-30 13:33 | Discharge Summary ---
Discharge Summary Hospital Course Was the Problem List Reviewed?: Yes Problems/Dx: (1) Cellulitis of lower extremity Status: Acute Qualifiers: Qualified Codes: L03.119 - Cellulitis of unspecified part of limb (2) Urinary tract infection Status: Acute Qualifiers: Qualified Codes: N39.0 - Urinary tract infection, site not specified; R31.9 - Hematuria, unspecified (3) Chest pain Status: Acute (4) GERD (gastroesophageal reflux disease) Status: Acute (5) Super-super obese Status: Chronic (6) Lymphedema Status: Acute (7) HTN (hypertension) Status: Chronic Qualifiers: Qualified Codes: I10 - Essential (primary) hypertension (8) Hypothyroidism Status: Chronic (9) Anxiety Status: Chronic Hospital Course Date of Admission: Apr 28, 2021 at 15:05 Admission Diagnosis : Cellulitis of bilateral lower extremities Family Physician/Provider: Stevie Hdz Physician Date of Discharge: 04/30/21 Discharge Diagnosis: Cellulitis of bilateral lower extremities Hospital Course: Brianne Jhaveri is a 50-year-old female with past medical history of hypertension, hypothyroidism, GERD, anxiety, tobacco abuse, marijuana abuse, super super obesity, who presented with bilateral lower extremity redness and was admitted with cellulitis. He was treated with IV antibiotics and improved. She was transitioned to oral antibiotics and will complete a course as an outpatient. Her UA was concerning for a UTI but her culture appeared to be contaminated. Wound care was consulted for her lower extremity swelling and they will follow her as an outpatient for her lymphedema and cellulitis. She had issues with chest pain which was determined to be due to GERD and she was started on a PPI. She was discharged home in stable condition. She will follow up with her primary care physician in [place]. Labs and Pending Lab Test: Laboratory Tests 04/29/21 15:50: Glucometer 99 04/29/21 21:30: Glucometer 105 04/30/21 05:00: Sodium Level 140, Potassium Level 3.9, Chloride Level 105, Carbon Dioxide Level 25, Anion Gap 10, Blood Urea Nitrogen 11, Creatinine 0.94, Estimat Glomerular Filtration Rate > 60, BUN/Creatinine Ratio 12, Glucose Level 93, Calcium Level 8.6, Magnesium Level 2.1 04/30/21 05:18: Glucometer 102 Microbiology 04/28/21 Urine Culture - Final, Complete >=3 Gram Positive Isolates 04/28/21 Blood Culture - Preliminary, Resulted Probable Coag Negative Staph Home Meds Active Cefdinir 300 Mg Capsule 300 Mg PO BID 10 Days Pantoprazole Sodium 40 Mg Tablet.dr 40 Mg PO DAILY 30 Days Reported Ibuprofen 200 Mg Tablet 400-600 Mg PO Q8H PRN Venlafaxine HCl ER (Venlafaxine HCl) 150 Mg Cap.er.24h 300 Mg PO DAILY TAKES 2 (150MG) CAPS Prazosin HCl 2 Mg Capsule 2 Mg PO DAILY Alprazolam 1 Mg Tablet 1 Mg PO TID PRN Amlodipine Besylate 5 Mg Tablet 5 Mg PO DAILY Famotidine 20 Mg Tablet 20 Mg PO BID Cyclobenzaprine HCl 10 Mg Tablet 10 Mg PO TID PRN Hydrocodone-Acetamin 5-325 mg (Hydrocodone/Acetaminophen) 1 Each Tablet 1 Ea PO BID PRN Levothyroxine Sodium 300 Mcg Tablet 300 Mcg PO DAILY Assessment/Pt Instructions Take medications as prescribed. Complete your course of antibiotics even if you are feeling better. Follow-up with wound care. Follow-up with your primary care physician. Return with worsening leg pain, rash, or if you feel like you are getting worse. Discharge Planning: >30 minutes discharge planning Discharge Instructions Discharge Diet: Low Sodium Diet Activity as Tolerated: Yes Discharge Physical Examination Vital Signs Vital Signs Date Time Temp Pulse Resp B/P (MAP) Pulse Ox O2 Delivery O2 Flow Rate FiO2 04/30/21 13:00 35.8 65 14 114/57 95 Room Air 04/28/21 17:01 21 General Appearance: No Apparent Distress, Obese Respiratory: No Respiratory Distress, Decreased Breath Sounds Cardiovascular: Regular Rate, Rhythm, No Murmur Gastrointestinal: Normal Bowel Sounds, Non Tender, Soft Extremity: Normal Inspection, Non Tender, Inflammation, Pedal Edema, Swelling Skin: Erythema Neurologic/Psychiatric: Alert, Oriented x3, Other (Agitated, irritable) Allergies: Coded Allergies: Sulfa (Sulfonamide Antibiotics) (Verified Allergy, Unknown, 04/28/21) adhesive tape (Verified Allergy, Unknown, 04/28/21) povidone-iodine (Verified Allergy, Unknown, 04/27/21) soap (Verified Allergy, Unknown, 04/27/21) Discharge Summary Date of Admission Apr 28, 2021 at 15:05 Date of Discharge Apr 30, 2021 at 13:11 Discharge Date: Apr 30, 2021 Discharge Time: 13:11 Admission Diagnosis Cellulitis of bilateral lower extremities Discharge Diagnosis Cellulitis of bilateral lower extremities Lymphedema UTI (1) Cellulitis of lower extremity Status: Acute Qualifiers: Qualified Codes: L03.119 - Cellulitis of unspecified part of limb (2) Urinary tract infection Status: Acute Qualifiers: Qualified Codes: N39.0 - Urinary tract infection, site not specified; R31.9 - Hematuria, unspecified (3) Chest pain Status: Acute (4) GERD (gastroesophageal reflux disease) Status: Acute (5) Super-super obese Status: Chronic (6) Lymphedema Status: Acute (7) HTN (hypertension) Status: Chronic Qualifiers: Qualified Codes: I10 - Essential (primary) hypertension (8) Hypothyroidism Status: Chronic (9) Anxiety Status: Chronic SAROJ ALARCON MD Apr 30, 2021 13:33
== END 2021-04-30 13:11 | disposition home or self-care (01) ==
LOC: EDUNIT# 12:52 → ER 12:56 → 4TH 15:05
PROVIDERS: ADMIT Internal Medicine; ATTEND Internal Medicine
DX: L03.115 Cellulitis of right lower limb (principal); L03.116 Cellulitis of left lower limb; I89.0 Lymphedema, not elsewhere classified; R07.9 Chest pain, unspecified; E66.01 Morbid (severe) obesity due to excess calories; N39.0 Urinary tract infection, site not specified; I10 Essential (primary) hypertension; E03.9 Hypothyroidism, unspecified; K21.9 Gastro-esophageal reflux disease without esophagitis; G89.29 Other chronic pain; G20 Parkinson's disease; F17.210 Nicotine dependence, cigarettes, uncomplicated; F41.9 Anxiety disorder, unspecified; F32.9 Major depressive disorder, single episode, unspecified; Z68.44 Body mass index [BMI] 60.0-69.9, adult; Z86.73 Personal history of transient ischemic attack (TIA), and cerebral infarction without residual deficits; Z79.899 Other long term (current) drug therapy; Z79.890 Hormone replacement therapy; Z79.891 Long term (current) use of opiate analgesic
CPT/HCPCS: 80048 ×2; 80053; 81000; 82947 ×3; 83036; 83605; 83735 ×2; 84100; 84443; 84484; 85007; 85025; 85027; 86141; 87040; 87088; 93005; 93306; 94640 ×3; 99284; G0378; 36415

== ENCOUNTER → 2021-05-15 | Outpatient (CLI) | payer MEDICAID ==
[~2021-05-15] MED LIST changes: +ACHD5005 PO; +ALPR1TAB7 PO; +AMLO-250 PO; +CEFD300C3 PO; +CYCL10TA9 PO; +FAMO20TA5 PO; +IBUP-2473 PO; +LEVO300T5 PO; +PANT40TA52 PO; +PRAZ2CAP2 PO; +VENL150C98 PO
== END ==
LOC: WOUNDCARE 05-07 09:19
PROVIDERS: ATTEND Surgery
DX: I89.0 Lymphedema, not elsewhere classified (principal); L03.115 Cellulitis of right lower limb; L03.116 Cellulitis of left lower limb; E66.01 Morbid (severe) obesity due to excess calories; I70.223 Atherosclerosis of native arteries of extremities with rest pain, bilateral legs
CPT/HCPCS: 99212

== ENCOUNTER 2021-06-13 12:17 | Emergency (ER) | payer MEDICAID ==
[~2021-06-13 12:17] MED LIST changes: -SULF1TAB35 PO; +SULF1TAB38 PO
[2021-06-14] MEDS ORDERED: CIPR500T5 PO (20:22)
[2021-06-14] MEDS ORDERED: ACHD5005 PO (20:22)
== END 2021-06-13 12:45 | disposition left against medical advice (07) ==
LOC: EDUNIT# 12:17 → ER 12:19
DX: S79.919A Unspecified injury of unspecified hip, initial encounter (principal); R19.7 Diarrhea, unspecified; X58.XXXA Exposure to other specified factors, initial encounter

== ENCOUNTER 2021-06-14 17:15 | Emergency (ER) | payer MEDICAID ==
[~2021-06-14] VITALS: Ht 175 cm; Wt 179.3 kg
[2021-06-14] MEDS ORDERED: RT-ALBUTEROL INHALER HFA (VENTOLIN HFA) 18 GM IH STA (17:31)
[2021-06-14] MEDS ORDERED: ONDANSETRON 4 MG/2 ML (SDV) Z0FRAN IVP ONE (17:45)
[2021-06-14] MEDS ORDERED: fentaNYL INJ 100 MCG/2 ML AMP IVP ONE (17:45)
--- NOTE | 2021-06-14 17:54 | ED General ---
General Chief Complaint: Respiratory Problems Stated Complaint: DIARRHEA,SOB,SORE THROAT,UTI Nursing Triage Note: PT PRESENTS TO THE ED C/O SOB, L FLANK PAIN, LOOSE STOOLS AND NUASEA FOR THE LAST 4 DAYS. PT STATES SHE TESTED POSITIVE FOR COVID TODAY. Source of Information: Patient Exam Limitations: No Limitations (JAQUAN LEVY MD) History of Present Illness Date Seen by Provider: Jun 14, 2021 Time Seen by Provider: 17:30 Initial Comments This is a 50-year-old woman presents to the emergency room with multiple complaints. She has not been feeling well for about 4 days with symptoms that include left-sided abdominal pain, hematuria, diarrhea, nausea, and shortness of breath. She presented to the [facility] clinic today and tested positive for COVID-19. She has multiple medical problems including morbid obesity, history of strokes, COPD, and repeated episodes of lower extremity cellulitis. She reports her last measured weight was 395 pounds. Her left-sided abdominal pain radiates from the flank down to the groin and she does report a history of prior kidney stones. (JAQUAN LEVY MD) Allergies and Home Medications Allergies Coded Allergies: Sulfa (Sulfonamide Antibiotics) (Verified Allergy, Unknown, 04/28/21) adhesive tape (Verified Allergy, Unknown, 04/28/21) povidone-iodine (Verified Allergy, Unknown, 04/27/21) soap (Verified Allergy, Unknown, 04/27/21) Home Medications Alprazolam 1 Mg Tablet, 1 MG PO TID PRN for ANXIETY, (Reported) Amlodipine Besylate 5 Mg Tablet, 5 MG PO DAILY, (Reported) Cefdinir 300 Mg Capsule, 300 MG PO BID Prescribed by: SAROJ ALARCON on 04/30/21958 Ciprofloxacin HCl 500 Mg Tablet, 500 MG PO BID Prescribed by: ERNST MOCK on 06/14/212021 Cyclobenzaprine HCl 10 Mg Tablet, 10 MG PO TID PRN for MUSCLE SPASMS, (Reported) Famotidine 20 Mg Tablet, 20 MG PO BID, (Reported) Hydrocodone/Acetaminophen 1 Each Tablet, 1 EA PO BID PRN for PAIN-MODERATE (5- 7), (Reported) Hydrocodone/Acetaminophen 1 Each Tablet, 1 TAB PO Q4H PRN for PAIN-MODERATE (5- 7) Prescribed by: ERNST MOCK on 06/14/212021 Ibuprofen 200 Mg Tablet, 400-600 MG PO Q8H PRN for PAIN-MILD (1-4), (Reported) Levothyroxine Sodium 300 Mcg Tablet, 300 MCG PO DAILY, (Reported) Pantoprazole Sodium 40 Mg Tablet.dr, 40 MG PO DAILY Prescribed by: SAROJ ALARCON on 04/30/21 0959 Prazosin HCl 2 Mg Capsule, 2 MG PO DAILY, (Reported) Venlafaxine HCl 150 Mg Cap.er.24h, 300 MG PO DAILY, (Reported) TAKES 2 (150MG) CAPS Patient Home Medication List Home Medication List Reviewed: Yes (JAQUAN LEVY MD) Review of Systems Review of Systems Constitutional: weakness EENTM: no symptoms reported Respiratory: see HPI Cardiovascular: no symptoms reported Gastrointestinal: see HPI Genitourinary: see HPI : No Musculoskeletal: no symptoms reported Skin: no symptoms reported Psychiatric/Neurological: See HPI Hematologic/Lymphatic: No Symptoms Reported Immunological/Allergic: no symptoms reported (JAQUAN LEVY MD) Past Tjloscz-Qnmmej-Rjwiyp Hx Patient Social History Tobacco Use?: Yes Tobacco type used: Cigarettes Smoking Status: Current Someday Smoker Substance use?: Yes Substance type: Marijuana (JAQUAN LEVY MD) Seasonal Allergies Seasonal Allergies: No (JAQUAN LEVY MD) Past Medical History Surgeries: Yes Breast, Section, Gallbladder Respiratory: Yes Asthma, COPD Cardiac: No Neurological: Yes Stroke Last Menstrual Period: May 29, 2021 Genitourinary: No Gastrointestinal: No Musculoskeletal: Yes (Chronic pain) Endocrine: Yes (Morbid obesity) HEENT: No Cancer: No Psychosocial: Yes Integumentary: Yes (cellulitis) (JAQUAN LEVY MD) Family Medical History No Pertinent Family Hx (JAQUAN LEVY MD) Physical Exam Vital Signs Vital Signs - First Documented 06/14/21 17:20 Temp 37.4 Pulse 96 Resp 18 B/P (MAP) 107/81 (90) Pulse Ox 95 O2 Delivery Room Air (ERNST MOCK APRN) Vital Signs Capillary Refill : Less Than 3 Seconds (JAQUAN LEVY MD) Height, Weight, BMI Height: '" Weight: lbs. oz. kg; 58.00 BMI Method: General Appearance: WD/WN, Mild Distress, Obese HEENT: PERRL/EOMI, Normal ENT Inspection Neck: Normal Inspection Respiratory: No Respiratory Distress; No Crackles; Decreased Breath Sounds, Wheezing, Other (Prolonged expiratory phase) Cardiovascular: Regular Rate, Rhythm, No Edema, No Murmur Gastrointestinal: Soft, Tenderness (Throughout the left abdomen) Extremity: Normal Inspection, No Pedal Edema Neurologic/Psychiatric: Alert, Oriented x3, No Motor/Sensory Deficits, site medical director II- XII Norm as Tested, Other (Tearful) Skin: Normal Color, Warm/Dry (JAQUAN LEVY MD) Progress/Results/Core Measures Suspected Sepsis SIRS Temperature: Pulse: 96 Respiratory Rate: 18 Blood Pressure 107 /81 Mean: 90 (JAQUAN LEVY MD) Results/Orders Lab Results Laboratory Tests Test 06/14/21 18:06 06/14/21 18:28 Range/Units White Blood Count 5.2 4.3-11.0 10^3/uL Red Blood Count 4.18 3.80-5.11 10^6/uL Hemoglobin 13.2 11.5-16.0 g/dL Hematocrit 41 35-52 % Mean Corpuscular Volume 97 80-99 fL Mean Corpuscular Hemoglobin 32 25-34 pg Mean Corpuscular Hemoglobin Concent 32 32-36 g/dL Red Cell Distribution Width 14.5 10.0-14.5 % Platelet Count 192 130-400 10^3/uL Mean Platelet Volume 10.3 9.0-12.2 fL Immature Granulocyte % (Auto) 1 % Neutrophils (%) (Auto) 51 42-75 % Lymphocytes (%) (Auto) 36 12-44 % Monocytes (%) (Auto) 11 0-12 % Eosinophils (%) (Auto) 2 0-10 % Basophils (%) (Auto) 0 0-10 % Neutrophils # (Auto) 2.6 1.8-7.8 10^3/uL Lymphocytes # (Auto) 1.9 1.0-4.0 10^3/uL Monocytes # (Auto) 0.6 0.0-1.0 10^3/uL Eosinophils # (Auto) 0.1 0.0-0.3 10^3/uL Basophils # (Auto) 0.0 0.0-0.1 10^3/uL Immature Granulocyte # (Auto) 0.0 0.0-0.1 10^3/uL D-Dimer 1.81 H 0.00-0.49 UG/ML Sodium Level 141 135-145 MMOL/L Potassium Level 4.0 3.6-5.0 MMOL/L Chloride Level 106 98-107 MMOL/L Carbon Dioxide Level 24 21-32 MMOL/L Anion Gap 11 5-14 MMOL/L Blood Urea Nitrogen 11 7-18 MG/DL Creatinine 1.24 0.60-1.30 MG/DL Estimat Glomerular Filtration Rate 46 BUN/Creatinine Ratio 9 Glucose Level 109 H 70-105 MG/DL Calcium Level 8.6 8.5-10.1 MG/DL Corrected Calcium 8.6 8.5-10.1 MG/DL Total Bilirubin 0.3 0.1-1.0 MG/DL Aspartate Amino Transf (AST/SGOT) 27 5-34 U/L Alanine Aminotransferase (ALT/SGPT) 26 0-55 U/L Alkaline Phosphatase 52 40-136 U/L C-Reactive Protein High Sensitivity 0.57 H 0.00-0.50 MG/DL Total Protein 8.2 6.4-8.2 GM/DL Albumin 4.0 3.2-4.5 GM/DL Procalcitonin 0.03 <0.10 NG/ML Urine Color DARK YELLOW Urine Clarity CLOUDY Urine pH 6.0 5-9 Urine Specific [place] >=1.030 1.016-1.022 Urine Protein 3+ H NEGATIVE Urine Glucose (UA) NEGATIVE NEGATIVE Urine Ketones TRACE H NEGATIVE Urine Nitrite POSITIVE H NEGATIVE Urine Bilirubin 1+ H NEGATIVE Urine Urobilinogen 1.0 < = 1.0 MG/DL Urine Leukocyte Esterase 2+ H NEGATIVE Urine RBC (Auto) 3+ H NEGATIVE Urine RBC TNTC H /HPF Urine WBC 50-100 H /HPF Urine Squamous Epithelial Cells 2-5 /HPF Urine Crystals NONE /LPF Urine Bacteria TRACE /HPF Urine Casts NONE /LPF Urine Mucus SMALL H /LPF Urine Culture Indicated YES (ERNST MOCK APRN) My Orders Orders - ERNST MOCK APRN Ua Culture If Indicated (06/14/21 17:34) Ct Abd/Pelvis Wo(Kidney Stone) (06/14/21 18:33) Ct Angio Chest W (06/14/21 18:33) Iohexol Injection (Omnipaque 350 Mg/Ml 1 (06/14/21 18:45) Received Contrast (Hold Metformin- Contr (06/14/21 18:45) Ns (Ivpb) (Sodium Chloride 0.9% Ivpb Bag (06/14/21 18:45) Urine Culture (06/14/21 18:28) Ceftriaxone (Rocephin) (06/14/21 19:15) Rx-Hydrocodone/Apap 5-325 Mg (Rx-Vicodin (06/14/21 20:30) (ERNST MOCK APRN) Medications Given in ED Current Medications Medications Dose Ordered Sig/Yoseph Route Start Time Stop Time Status Last Admin Dose Admin Ceftriaxone Sodium 1000 mg/ Sterile Water 10 ml @ 200 mls/hr ONCE ONCE IV 06/14/21 19:15 06/14/21 19:17 DC 06/14/21 19:21 200 MLS/HR Fentanyl Citrate 75 mcg ONCE ONCE IVP 06/14/21 17:45 06/14/21 17:46 DC 06/14/21 18:10 75 MCG Iohexol 100 ml ONCE ONCE IV 06/14/21 18:45 06/14/21 18:46 DC 06/14/21 19:54 88 ML Ondansetron HCl 8 mg ONCE ONCE IVP 06/14/21 17:45 06/14/21 17:46 DC 06/14/21 18:09 8 MG Sodium Chloride 100 ml ONCE ONCE IV 06/14/21 18:45 06/14/21 18:46 DC 06/14/21 19:54 80 ML (ERNST MOCK APRN) Vital Signs/I&O 06/14/21 17:20 Temp 37.4 Pulse 96 Resp 18 B/P (MAP) 107/81 (90) Pulse Ox 95 O2 Delivery Room Air (ERNST MOCK APRN) Vital Signs/I&O Capillary Refill : Less Than 3 Seconds (JAQUAN LEVY MD) Blood Pressure Mean: 90 Progress Note : Time: 18:02 Progress Note Care of this patient has been initiated with fentanyl, Zofran, and albuterol inhaler. Anticipate CT of the abdomen and pelvis for stone search. Basic labs for Covid have also been ordered along with a chest x-ray. Care of this patient is being transitioned to Ernst Mock NP at this time. (JAQUAN LEVY MD) Diagnostic Imaging Diagonstic Imaging: CT Comments NAME: SASCHA [facility] REC#: [id number] PT STATUS: REG ER : 1970 PHYSICIAN: ERNST MOCK [employer] ADMIT DATE: 06/14/21/ER Draft Date of Exam:06/14/21 CT ABD/PELVIS WO(KIDNEY STONE) PROCEDURE: CT urinary tract, rule out kidney stone. TECHNIQUE: Multiple contiguous axial images were obtained through the abdomen and pelvis without the use of intravenous contrast. Auto Exposure Controls were utilized during the CT exam to meet ALARA standards for radiation dose reduction. DATE: June 14, 2021. COMPARISON: None. INDICATION: 50-year-old female, left flank pain. Shortness of breath. COVID positive. FINDINGS: There are limitations for evaluation of the abdominal organs, neoplastic processes, abscess, and limited evaluation of the vasculature relating to the lack of intravenous contrast. There is a left lower lobe pulmonary nodule on axial image 13 which measures 11 mm in size. There are small ill-defined nodular areas of opacification in the left lower lobe and lingula as well as in the right lower lobe and right middle lobe. The heart is not enlarged. There is no pericardial effusion. The liver is unremarkable in size and contour. The patient is status post cholecystectomy. There is no biliary ductal dilation. The main pancreatic duct is not grossly dilated. Limited noncontrast dilation of the pancreatic parenchyma is unremarkable. The spleen is normal in size. There is a low-attenuation left adrenal nodule measuring 12 mm in size on axial image 39 with internal attenuation of -20 Hounsfield units compatible with an adrenal adenoma. There is a stone in the left renal pelvis extending into the left proximal ureter measuring 2.2 cm in length. There is no maximino left hydronephrosis. There is no additional identified ureteral stone. Urinary bladder is collapsed and not well evaluated. The intestinal tract is not distended. There is no evidence of acute appendicitis. There is no free intraperitoneal air. There is no drainable fluid collection. There is no free pelvic fluid. There are atherosclerotic calcifications. There is no identified abnormally enlarged lymph node in the abdomen or pelvis meeting CT size criteria for adenopathy. IMPRESSION: CT ABDOMEN AND PELVIS. 1. Large stone in left renal pelvis measuring 22 mm in length extending to the very proximal aspect of the left ureter without maximino left hydronephrosis. 2. 12 mm left adrenal adenoma. 3. Multifocal subtle nodular areas of consolidation in the lungs which may relate to COVID 19 infection and multifocal pneumonia/pneumonitis. 4. 11 mm left lower lobe pulmonary nodule. Recommend followup CT chest without contrast in 3-6 months to assess for possible stability. Dictated on workstation # [id number] Dict: 06/14/211950 Trans: 06/14/211956 CVB [id number] Interpreted by: REX HARP MD Electronically signed by: (ERNST MOCK APRN) Departure Communication (Admissions) Family Conversation NAME: SASCHA KELLY [facility] REC#: [id number] PT STATUS: REG ER : 1970 PHYSICIAN: ERNST MOCK APRN ADMIT DATE: 06/14/21/ER Draft Date of Exam:06/14/21 CT ANGIO CHEST W PROCEDURE: CT angiography of the chest with contrast. TECHNIQUE: Multiple contiguous axial images were obtained through the chest after uneventful bolus administration of intravenous contrast. 3D reconstructed CTA MIP acquisitions were also performed. Auto Exposure Controls were utilized during the CT exam to meet ALARA standards for radiation dose reduction. DATE: June 14, 2021. COMPARISON: None. INDICATION: 50-year-old female, shortness of breath. Left flank pain. Positive for COVID 19. FINDINGS: There are multifocal ill-defined bilateral areas of pulmonary nodular opacification. There is a peripheral nodule in the left lower lobe measuring 11 mm in size which may not necessarily relate to be more ill-defined pulmonary nodules and areas of alveolar consolidation which are fairly ill-defined. There is no pneumothorax. There is no pleural effusion. The central airways are patent. The main pulmonary artery diameter measures abnormally dilated at 3.2 cm suggesting pulmonary artery hypertension. There is no identified pulmonary embolus. The heart is not enlarged. There is no pericardial effusion. There is no identified abnormally enlarged mediastinal, hilar, or axillary lymph node meeting CT size criteria for adenopathy. The patient is status post cholecystectomy. There are multilevel degenerative changes of the spine. There is no identified acute bony abnormality. IMPRESSION: CT CHEST. 1. Multiple ill-defined areas of nodular opacification in the lungs most likely relating to history of COVID 19 infection and multifocal pneumonia/pneumonitis. 2. Peripheral 11 mm left lower lobe pulmonary nodule which may not necessarily relate to the above process. This is contiguous with an adjacent vessel and could relate to a vascular malformation although is not contrast opacified. Recommend comparison with prior imaging if available to assess for potential stability. If comparison imaging is not available, followup CT chest in 3-6 months to evaluate for stability is recommended. 3. No identified pulmonary embolus. Dictated on workstation # [id number] Dict: 06/14/212006 Trans: 06/14/212011 CVB [id number] Interpreted by: REX HARP MD Electronically signed by: 2018-I discussed the case with Dr. Sena. She is not septic, there is no need for emergent intervention for the stone there is no hydronephrosis. Recommends Rocephin here then outpatient follow-up with [facility] for lithotripsy under flexible ureteroscopy or percutaneous removal. Based on body habitus as well therapy is precluded. Martinez with her the emergency use authorization of Regeneron. She would like to receive this. I will arrange for her to have it. Information filled out and sent to pharmacy.O2 saturation briefly dropped after fentanyl administration but has been 96% on room air x30 minutes. (ERNST MOCK APRN) Impression Primary Impression: COVID-19 Additional Impression: Left ureteral calculus Disposition: 01 HOME, SELF-CARE Condition: Stable Departure-Patient Inst. Decision time for Depature: 20:11 (ERNST MOCK APRN) Referrals: KEV GRIFFIN BETHANY N MD NO,LOCAL PHYSICIAN (PCP) Primary Care Physician Patient Instructions: Kidney Stones (DC), REGEN-COV (casirivimab and imdevimab) FDA Fact Sheet Add. Discharge Instructions: 1. Call [facility] on Wednesday to make an appointment to be seen. In the meantime return to ER for any concerns. Pain medication as directed. All discharge instructions reviewed with patient and/or family. Voiced understanding. Scripts Hydrocodone/Acetaminophen (Hydrocodone-Acetamin 5-325 mg) 1 Each Tablet 1 TAB PO Q4H PRN for PAIN-MODERATE (5-7), #20 TAB Prov: ERNST MOCK APRN 06/14/21 Ciprofloxacin HCl (Ciprofloxacin HCl) 500 Mg Tablet 500 MG PO BID, #14 TAB Prov: ERNST MOCK APRN 06/14/21 Copy Copies To 1: STEPHANIE CONTRERAS MD, JOSHUA T MD Jun 14, 2021 17:54 ERNST MOCK APRN Jun 14, 2021 20:11
[2021-06-14 18:17] LABS: BASOPHILS % (AUTO) 0 % (0-10); EOSINOPHILS # (AUTO) 0.1 10^3/uL (0.0-0.3); EOSINOPHILS % (AUTO) 2 % (0-10); HEMATOCRIT 41 % (35-52); HEMOGLOBIN 13.2 g/dL (11.5-16.0); LYMPHOCYTES # (AUTO) 1.9 10^3/uL (1.0-4.0); LYMPHOCYTES % (AUTO) 36 % (12-44); MEAN CORPUSCULAR HEMOGLOBIN 32 pg (25-34); MEAN CORPUSCULAR HGB CONC 32 g/dL (32-36); MEAN CORPUSCULAR VOLUME 97 fL (80-99); MEAN PLATELET VOLUME 10.3 fL (9.0-12.2); MONOCYTES # (AUTO) 0.6 10^3/uL (0.0-1.0); MONOCYTES % (AUTO) 11 % (0-12); NEUTROPHILS # (AUTO) 2.6 10^3/uL (1.8-7.8); NEUTROPHILS % (AUTO) 51 % (42-75); PLATELET COUNT 192 10^3/uL (130-400); WHITE BLOOD COUNT 5.2 10^3/uL (4.3-11.0)
[2021-06-14 18:36] LABS: CALCIUM 8.6 MG/DL (8.5-10.1)
[2021-06-14 18:37] LABS: TOTAL PROTEIN 8.2 GM/DL (6.4-8.2)
[2021-06-14 18:39] LABS: BILIRUBIN,TOTAL 0.3 MG/DL (0.1-1.0)
[2021-06-14 18:41] LABS: CREATININE SERUM 1.24 MG/DL (0.60-1.30)
[2021-06-14 18:42] LABS: CLARITY,URINE CLOUDY; COLOR,URINE DARK YELLOW; GLUCOSE, URINE (UA) NEGATIVE (NEGATIVE); KETONES,URINE TRACE (NEGATIVE); LEUKOCYTE ESTERASE ,URINE 2+ (NEGATIVE); NITRITE,URINE POSITIVE (NEGATIVE); PROTEIN,URINE 3+ (NEGATIVE)
[2021-06-14] MEDS ORDERED: NS 100 ML (IVPB) BAG IV ONE (18:45)
[2021-06-14] MEDS ORDERED: IOHEXOL 350 MG/ML 100 ML (OMNIPAQUE 350) VIAL IV ONE (18:45)
[2021-06-14] MEDS ORDERED: HOLD METFORMIN - RECEIVED CONTRAST 20 ML VIAL IV SCH (18:45)
[2021-06-14 18:51] LABS: BILIRUBIN,URINE 1+ (NEGATIVE)
[2021-06-14 18:53] LABS: BACTERIA,URINE TRACE /HPF; RBC,URINE TNTC /HPF; WBC,URINE 50-100 /HPF
[2021-06-14] MEDS ORDERED: cefTRIAXone 1,000 MG in WATER (STERILE) FOR INJECTION 10 ML IV ONE (19:15)
--- NOTE | 2021-06-14 19:57 | Diagnostic Imaging Report ---
PROCEDURE: CT urinary tract, rule out kidney stone. TECHNIQUE: Multiple contiguous axial images were obtained through the abdomen and pelvis without the use of intravenous contrast. Auto Exposure Controls were utilized during the CT exam to meet ALARA standards for radiation dose reduction. DATE: June 14, 2021. COMPARISON: None. INDICATION: 50-year-old female, left flank pain. Shortness of breath. COVID positive. FINDINGS: There are limitations for evaluation of the abdominal organs, neoplastic processes, abscess, and limited evaluation of the vasculature relating to the lack of intravenous contrast. There is a left lower lobe pulmonary nodule on axial image 13 which measures 11 mm in size. There are small ill-defined nodular areas of opacification in the left lower lobe and lingula as well as in the right lower lobe and right middle lobe. The heart is not enlarged. There is no pericardial effusion. The liver is unremarkable in size and contour. The patient is status post cholecystectomy. There is no biliary ductal dilation. The main pancreatic duct is not grossly dilated. Limited noncontrast dilation of the pancreatic parenchyma is unremarkable. The spleen is normal in size. There is a low-attenuation left adrenal nodule measuring 12 mm in size on axial image 39 with internal attenuation of -20 Hounsfield units compatible with an adrenal adenoma. There is a stone in the left renal pelvis extending into the left proximal ureter measuring 2.2 cm in length. There is no maximino left hydronephrosis. There is no additional identified ureteral stone. Urinary bladder is collapsed and not well evaluated. The intestinal tract is not distended. There is no evidence of acute appendicitis. There is no free intraperitoneal air. There is no drainable fluid collection. There is no free pelvic fluid. There are atherosclerotic calcifications. There is no identified abnormally enlarged lymph node in the abdomen or pelvis meeting CT size criteria for adenopathy. IMPRESSION: CT ABDOMEN AND PELVIS. 1. Large stone in left renal pelvis measuring 22 mm in length extending to the very proximal aspect of the left ureter without maximino left hydronephrosis. 2. 12 mm left adrenal adenoma. 3. Multifocal subtle nodular areas of consolidation in the lungs which may relate to COVID 19 infection and multifocal pneumonia/pneumonitis. 4. 11 mm left lower lobe pulmonary nodule. Recommend followup CT chest without contrast in 3-6 months to assess for possible stability. Dictated by: Dictated on workstation # [id number]
--- NOTE | 2021-06-14 20:12 | Diagnostic Imaging Report ---
PROCEDURE: CT angiography of the chest with contrast. TECHNIQUE: Multiple contiguous axial images were obtained through the chest after uneventful bolus administration of intravenous contrast. 3D reconstructed CTA MIP acquisitions were also performed. Auto Exposure Controls were utilized during the CT exam to meet ALARA standards for radiation dose reduction. DATE: June 14, 2021. COMPARISON: None. INDICATION: 50-year-old female, shortness of breath. Left flank pain. Positive for COVID 19. FINDINGS: There are multifocal ill-defined bilateral areas of pulmonary nodular opacification. There is a peripheral nodule in the left lower lobe measuring 11 mm in size which may not necessarily relate to be more ill-defined pulmonary nodules and areas of alveolar consolidation which are fairly ill-defined. There is no pneumothorax. There is no pleural effusion. The central airways are patent. The main pulmonary artery diameter measures abnormally dilated at 3.2 cm suggesting pulmonary artery hypertension. There is no identified pulmonary embolus. The heart is not enlarged. There is no pericardial effusion. There is no identified abnormally enlarged mediastinal, hilar, or axillary lymph node meeting CT size criteria for adenopathy. The patient is status post cholecystectomy. There are multilevel degenerative changes of the spine. There is no identified acute bony abnormality. IMPRESSION: CT CHEST. 1. Multiple ill-defined areas of nodular opacification in the lungs most likely relating to history of COVID 19 infection and multifocal pneumonia/pneumonitis. 2. Peripheral 11 mm left lower lobe pulmonary nodule which may not necessarily relate to the above process. This is contiguous with an adjacent vessel and could relate to a vascular malformation although is not contrast opacified. Recommend comparison with prior imaging if available to assess for potential stability. If comparison imaging is not available, followup CT chest in 3-6 months to evaluate for stability is recommended. 3. No identified pulmonary embolus. Dictated by: Dictated on workstation # [id number]
[2021-06-14] MEDS ORDERED: CIPR500T5 PO (20:22)
[2021-06-14] MEDS ORDERED: ACHD5005 PO (20:22)
[2021-06-14 20:54] VITALS: BP 112/62
== END 2021-06-14 21:03 | disposition home or self-care (01) ==
LOC: EDUNIT# 17:15 → ER 17:18
DX: U07.1 COVID-19 (principal); N20.1 Calculus of ureter; J44.9 Chronic obstructive pulmonary disease, unspecified; E66.01 Morbid (severe) obesity due to excess calories; G89.29 Other chronic pain; F17.210 Nicotine dependence, cigarettes, uncomplicated; Z68.43 Body mass index [BMI] 50.0-59.9, adult; Z86.73 Personal history of transient ischemic attack (TIA), and cerebral infarction without residual deficits; Z79.891 Long term (current) use of opiate analgesic; Z79.899 Other long term (current) drug therapy
CPT/HCPCS: 36415; 71275; 74176; 80053; 81000; 84145; 85025; 85379; 86141; 87077; 87088; 87186

== ENCOUNTER 2022-02-24 01:11 | Emergency (ER) | payer MEDICAID ==
[~2022-02-24 01:11] MED LIST changes: +CIPR500T5 PO; +CYCL10TA25 PO; -CYCL10TA9 PO
== END 2022-02-24 01:49 | disposition left against medical advice (07) ==
LOC: EDUNIT# 01:11 → ER 01:14
DX: R22.42 Localized swelling, mass and lump, left lower limb (principal)

== ENCOUNTER 2022-09-13 03:07 | Emergency (ER) | payer MEDICAID ==
[~2022-09-13] VITALS: Ht 162.5 cm; Wt 136.0 kg
[2022-09-13] MEDS ORDERED: cefTRIAXone 1 GM PRE-MIX 50 ML IV ONE (03:30)
--- NOTE | 2022-09-13 03:31 | ED General ---
General Chief Complaint: Lower Extremity Stated Complaint: KNOT IN ABD/LEGS SWOLLEN/PAINFUL Nursing Triage Note: Patient states that she has lower leg pain, abdominal pain for a year and has gotten worse in the last few days becuase she has not had her pain medication Source of Information: Patient Exam Limitations: No Limitations History of Present Illness Date Seen by Provider: Sep 13, 2022 Time Seen by Provider: 03:05 Initial Comments 52-year-old female presents the emergency department today for bilateral lower leg pain, swelling. She is also had a "lump in my abdomen" for about a year. She points to her upper abdomen, epigastric region as the area in question. She states her primary doctor referred her to a doctor here, she is not sure who. She was dosed with see him 5 weeks ago but did not come to the appointment. Regarding her legs she was told by her doctor and is likely cellulitis versus blood clots. She has been on 2 rounds of antibiotics and states they get better temporarily but then recur. She tells me she does not walk very much at home and is borderline diabetic. She denies any fevers chills nausea or vomiting. No chest pain or shortness of breath. No abdominal pain. No changes in bowel or bladder habits. The patient is quite anxious and very difficult to get a history out of is she cannot focus on the conversation Allergies and Home Medications Allergies Coded Allergies: Sulfa (Sulfonamide Antibiotics) (Verified Allergy, Unknown, 04/28/21) adhesive tape (Verified Allergy, Unknown, 04/28/21) povidone-iodine (Verified Allergy, Unknown, 04/27/21) soap (Verified Allergy, Unknown, 04/27/21) Patient Home Medication List Home Medication List Reviewed: Yes Alprazolam (Alprazolam) 1 Mg Tablet, 1 MG PO TID PRN for ANXIETY, (Reported) Entered as Reported by: CALLI EDWARDS on 04/29/21 141 Amlodipine Besylate (Amlodipine Besylate) 5 Mg Tablet, 5 MG PO DAILY, (Reported) Entered as Reported by: CALLI EDWARDS on 04/29/21 1414 Cefdinir (Cefdinir) 300 Mg Capsule, 300 MG PO BID Prescribed by: SAROJ ALARCON on 04/30/21 0951 Ciprofloxacin HCl (Ciprofloxacin HCl) 500 Mg Tablet, 500 MG PO BID Prescribed by: CUCO RHODES on 06/14/212021 Clindamycin HCl (Clindamycin HCl) 300 Mg Capsule, 300 MG PO TID Prescribed by: TERRY VICTOR MD on 09/13/22 0417 Cyclobenzaprine HCl (Cyclobenzaprine HCl) 10 Mg Tablet, 10 MG PO TID PRN for MUSCLE SPASMS, (Reported) Entered as Reported by: CALLI EDWARDS on 04/29/211413 Famotidine (Famotidine) 20 Mg Tablet, 20 MG PO BID, (Reported) Entered as Reported by: CALLI EDWARDS on 04/29/211413 Hydrocodone/Acetaminophen (Hydrocodone-Acetamin 5-325 mg) 1 Each Tablet, 1 EA PO BID PRN for PAIN-MODERATE (5-7), (Reported) Entered as Reported by: CALLI EDWARDS on 04/29/211413 Hydrocodone/Acetaminophen (Hydrocodone-Acetamin 5-325 mg) 1 Each Tablet, 1 TAB PO Q4H PRN for PAIN-MODERATE (5-7) Prescribed by: CUCO RHODES on 06/14/212021 Ibuprofen (Ibuprofen) 200 Mg Tablet, 400-600 MG PO Q8H PRN for PAIN-MILD (1-4), (Reported) Entered as Reported by: CALLI EDWARDS on 04/29/211413 Levothyroxine Sodium (Levothyroxine Sodium) 300 Mcg Tablet, 300 MCG PO DAILY, (Reported) Entered as Reported by: CALLI EDWARDS on 04/29/211413 Pantoprazole Sodium (Pantoprazole Sodium) 40 Mg Tablet.dr, 40 MG PO DAILY Prescribed by: SAROJ ALARCON on 04/30/21 0959 Prazosin HCl (Prazosin HCl) 2 Mg Capsule, 2 MG PO DAILY, (Reported) Entered as Reported by: CALLI EDWARDS on 04/29/211413 Venlafaxine HCl (Venlafaxine HCl ER) 150 Mg Cap.er.24h, 300 MG PO DAILY, (Reported) Entered as Reported by: CALLI EDWARDS on 04/29/211413 Review of Systems Review of Systems Constitutional: no symptoms reported EENTM: no symptoms reported Respiratory: no symptoms reported Cardiovascular: no symptoms reported Gastrointestinal: other (Bump in her epigastric region) Genitourinary: no symptoms reported Musculoskeletal: other (Bilateral leg pain) Skin: change in color Psychiatric/Neurological: No Symptoms Reported Hematologic/Lymphatic: No Symptoms Reported Immunological/Allergic: no symptoms reported Past Gplzzyl-Fzcrib-Iwlmvc Hx Patient Social History Tobacco Use?: Yes Use of E-Cig and/or Vaping dev: No Substance use?: Yes Substance type: Marijuana Alcohol Use?: No Seasonal Allergies Seasonal Allergies: No Past Medical History Surgeries: Yes Breast, Section, Gallbladder Respiratory: Yes Asthma, COPD Cardiac: No Neurological: Yes Stroke Genitourinary: No Gastrointestinal: No Musculoskeletal: Yes (Chronic pain) Endocrine: Yes (Morbid obesity) HEENT: No Cancer: No Psychosocial: Yes Integumentary: Yes (cellulitis) Family Medical History Reviewed Nursing Family Hx No Pertinent Family Hx Physical Exam Vital Signs Vital Signs - First Documented 09/13/22 03:16 Pulse 93 Resp 12 B/P (MAP) 119/99 (106) Pulse Ox 96 O2 Delivery Room Air Capillary Refill : Less Than 3 Seconds Height, Weight, BMI Height: '" Weight: lbs. oz. kg; 51.00 BMI Method: General Appearance: No Apparent Distress, WD/WN HEENT: PERRL/EOMI, TMs Normal, Normal ENT Inspection, Pharynx Normal Neck: Full Range of Motion, Normal Inspection, Non Tender, Supple Respiratory: Chest Non Tender, Lungs Clear, Normal Breath Sounds, No Accessory Muscle Use, No Respiratory Distress Cardiovascular: Regular Rate, Rhythm, No Edema, No Gallop, No JVD, No Murmur, Normal Peripheral Pulses Gastrointestinal: Normal Bowel Sounds, Other (There is a large indurated region in her epigastric abdomen. No overlying skin changes. Nontender.) Back: Normal Inspection, No CVA Tenderness, No Vertebral Tenderness Extremity: Swelling (3+ pitting edema bilateral lower extremities. There are some overlying erythema and her legs are diffusely tender bilaterally. Neurovascular and sensory intact distally. Good distal pulses) Neurologic/Psychiatric: Alert, Oriented x3, No Motor/Sensory Deficits Skin: Normal Color, Warm/Dry Lymphatic: No Adenopathy Progress/Results/Core Measures Suspected Sepsis SIRS Temperature: Pulse: 93 Respiratory Rate: 12 Laboratory Tests 09/13/22 03:41: White Blood Count 7.5 Blood Pressure 119 /99 Mean: 106 Laboratory Tests 09/13/22 03:41: Creatinine 1.64H, Platelet Count 264 Results/Orders Lab Results Laboratory Tests Test 09/13/22 03:41 Range/Units White Blood Count 7.5 4.3-11.0 10^3/uL Red Blood Count 3.75 L 3.80-5.11 10^6/uL Hemoglobin 11.6 11.5-16.0 g/dL Hematocrit 37 35-52 % Mean Corpuscular Volume 97 80-99 fL Mean Corpuscular Hemoglobin 31 25-34 pg Mean Corpuscular Hemoglobin Concent 32 32-36 g/dL Red Cell Distribution Width 13.2 10.0-14.5 % Platelet Count 264 130-400 10^3/uL Mean Platelet Volume 9.8 9.0-12.2 fL Immature Granulocyte % (Auto) 1 % Neutrophils (%) (Auto) 49 42-75 % Lymphocytes (%) (Auto) 33 12-44 % Monocytes (%) (Auto) 12 0-12 % Eosinophils (%) (Auto) 5 0-10 % Basophils (%) (Auto) 1 0-10 % Neutrophils # (Auto) 3.7 1.8-7.8 10^3/uL Lymphocytes # (Auto) 2.5 1.0-4.0 10^3/uL Monocytes # (Auto) 0.9 0.0-1.0 10^3/uL Eosinophils # (Auto) 0.4 H 0.0-0.3 10^3/uL Basophils # (Auto) 0.1 0.0-0.1 10^3/uL Immature Granulocyte # (Auto) 0.1 0.0-0.1 10^3/uL Sodium Level 141 135-145 MMOL/L Potassium Level 3.8 3.6-5.0 MMOL/L Chloride Level 105 98-107 MMOL/L Carbon Dioxide Level 21 21-32 MMOL/L Anion Gap 15 H 5-14 MMOL/L Blood Urea Nitrogen 27 H 7-18 MG/DL Creatinine 1.64 H 0.60-1.30 MG/DL Estimat Glomerular Filtration Rate 38 BUN/Creatinine Ratio 16 Glucose Level 110 H 70-105 MG/DL Calcium Level 9.1 8.5-10.1 MG/DL My Orders Orders - TERRY VICTOR DO Basic Metabolic Panel (09/13/22 03:27) Cbc With Automated Diff (09/13/22 03:27) Ceftriaxone 1 Gm Pre-Mix (Rocephin 1 Gm (09/13/22 03:30) Medications Given in ED Current Medications Medications Dose Ordered Sig/Yoseph Route Start Time Stop Time Status Last Admin Dose Admin Ceftriaxone Sodium/Dextrose 50 ml @ 100 mls/hr ONCE ONCE IV 09/13/22 03:30 09/13/22 04:00 DC 09/13/22 04:31 100 MLS/HR Vital Signs/I&O 09/13/22 03:16 Pulse 93 Resp 12 B/P (MAP) 119/99 (106) Pulse Ox 96 O2 Delivery Room Air Capillary Refill : Less Than 3 Seconds Blood Pressure Mean: 106 Departure Communication (Admissions) Patient is hemodynamically stable. No evidence for systemic infection or sepsis. Does have erythema to her bilateral lower extremities associated with some swelling. Unclear if this is purely from edema. I do not believe it is likely from DVT. Discharged in stable condition with antibiotics and supportive care. Impression Primary Impression: Cellulitis of lower extremity Qualified Codes: L03.119 - Cellulitis of unspecified part of limb Disposition: HOME, SELF-CARE Condition: Stable Departure-Patient Inst. Referrals: NO,LOCAL PHYSICIAN (PCP/Family) Primary Care Physician Patient Instructions: Dependent Edema (DC), Cellulitis and Erysipelas (Skin Infections) Add. Discharge Instructions: Antibiotics as prescribed until they are gone. It is important that you do not miss any doses. Follow-up with your primary doctor should your symptoms persist. Return to the emergency department for any severe concerns. All discharge instructions reviewed with patient and/or family. Voiced understanding. Scripts Clindamycin HCl (Clindamycin HCl) 300 Mg Capsule 300 MG PO TID for 10 Days, #30 CAP Prov: TERRY VICTOR DO 09/13/22 TERRY VICTOR DO Sep 13, 2022 03:31
[2022-09-13 03:52] LABS: BASOPHILS # (AUTO) 0.1 10^3/uL (0.0-0.1); BASOPHILS % (AUTO) 1 % (0-10); EOSINOPHILS # (AUTO) 0.4 10^3/uL (0.0-0.3); EOSINOPHILS % (AUTO) 5 % (0-10); HEMATOCRIT 37 % (35-52); HEMOGLOBIN 11.6 g/dL (11.5-16.0); LYMPHOCYTES # (AUTO) 2.5 10^3/uL (1.0-4.0); LYMPHOCYTES % (AUTO) 33 % (12-44); MEAN CORPUSCULAR HEMOGLOBIN 31 pg (25-34); MEAN CORPUSCULAR HGB CONC 32 g/dL (32-36); MEAN CORPUSCULAR VOLUME 97 fL (80-99); MEAN PLATELET VOLUME 9.8 fL (9.0-12.2); MONOCYTES # (AUTO) 0.9 10^3/uL (0.0-1.0); MONOCYTES % (AUTO) 12 % (0-12); NEUTROPHILS # (AUTO) 3.7 10^3/uL (1.8-7.8); NEUTROPHILS % (AUTO) 49 % (42-75); PLATELET COUNT 264 10^3/uL (130-400); WHITE BLOOD COUNT 7.5 10^3/uL (4.3-11.0)
[2022-09-13 04:07] LABS: POTASSIUM 3.8 MMOL/L (3.6-5.0)
[2022-09-13 04:08] LABS: CALCIUM 9.1 MG/DL (8.5-10.1)
[2022-09-13 04:13] LABS: CREATININE SERUM 1.64 MG/DL (0.60-1.30)
[2022-09-13] MEDS ORDERED: CLIN-144 PO (04:17)
[2022-09-13 05:13] VITALS: BP 131/95
== END 2022-09-13 05:13 | disposition home or self-care (01) ==
LOC: EDUNIT# 03:07 → ER 03:10
DX: L03.116 Cellulitis of left lower limb (principal); L03.115 Cellulitis of right lower limb; E66.01 Morbid (severe) obesity due to excess calories; Z72.0 Tobacco use; Z68.43 Body mass index [BMI] 50.0-59.9, adult; Z28.310 Unvaccinated for COVID-19
CPT/HCPCS: 36415; 80048; 85025

== ENCOUNTER 2022-09-14 16:16 | Emergency (ER) | payer MEDICAID ==
[~2022-09-14] VITALS: Ht 170 cm; Wt 173.0 kg
[~2022-09-14 16:16] MED LIST changes: +CLIN-144 PO
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
[2022-09-14] MEDS ORDERED: oxyCODONE/APAP 5/325MG (PERCOCET 5) TABLET PO ONE (17:15)
[2022-09-14] MEDS ORDERED: oxyCODONE/APAP 7.5-325 MG (PERCOCET 7.5) TABLET PO ONE (17:15)
[2022-09-14 17:16] LABS: POTASSIUM 3.6 MMOL/L (3.6-5.0)
[2022-09-14] MEDS ORDERED: oxyCODONE/APAP 5/325MG (PERCOCET 5) TABLET ONE (17:16)
[2022-09-14 17:17] LABS: CALCIUM 8.7 MG/DL (8.5-10.1)
[2022-09-14 17:19] LABS: TOTAL PROTEIN 8.2 GM/DL (6.4-8.2)
[2022-09-14 17:20] LABS: BILIRUBIN,TOTAL 0.5 MG/DL (0.1-1.0)
[2022-09-14 17:22] LABS: CREATININE SERUM 1.17 MG/DL (0.60-1.30)
--- NOTE | 2022-09-14 17:32 | Diagnostic Imaging Report ---
INDICATION: Shortness of breath. Frontal chest obtained at 05:14 p.m. compared to 04/27/2021 FINDINGS: Heart and mediastinal silhouette are normal in appearance. The lungs are clear. There is no pneumothorax or pleural fluid. IMPRESSION: Negative chest. Dictated by: Dictated on workstation # [id number]
[2022-09-14 17:59] LABS: BASOPHILS % (AUTO) 0 % (0-10); EOSINOPHILS # (AUTO) 0.3 10^3/uL (0.0-0.3); EOSINOPHILS % (AUTO) 5 % (0-10); HEMATOCRIT 39 % (35-52); HEMOGLOBIN 12.5 g/dL (11.5-16.0); LYMPHOCYTES # (AUTO) 1.8 10^3/uL (1.0-4.0); LYMPHOCYTES % (AUTO) 25 % (12-44); MEAN CORPUSCULAR HEMOGLOBIN 31 pg (25-34); MEAN CORPUSCULAR HGB CONC 33 g/dL (32-36); MEAN CORPUSCULAR VOLUME 96 fL (80-99); MEAN PLATELET VOLUME 9.8 fL (9.0-12.2); MONOCYTES # (AUTO) 0.5 10^3/uL (0.0-1.0); MONOCYTES % (AUTO) 8 % (0-12); NEUTROPHILS # (AUTO) 4.3 10^3/uL (1.8-7.8); NEUTROPHILS % (AUTO) 61 % (42-75); PLATELET COUNT 281 10^3/uL (130-400)
[2022-09-14 19:50] VITALS: BP 137/94
== END 2022-09-14 19:50 | disposition home or self-care (01) ==
LOC: EDUNIT# 16:16 → ER 16:17
DX: L03.116 Cellulitis of left lower limb (principal); L03.115 Cellulitis of right lower limb; E66.01 Morbid (severe) obesity due to excess calories; F17.210 Nicotine dependence, cigarettes, uncomplicated; Z68.43 Body mass index [BMI] 50.0-59.9, adult; Z28.310 Unvaccinated for COVID-19
CPT/HCPCS: 36415; 71045; 80053; 85025

== ENCOUNTER 2022-12-25 19:19 | Emergency (ER) | payer MEDICAID ==
[~2022-12-25] VITALS: Ht 167.7 cm; Wt 168.7 kg
--- NOTE | 2022-12-25 20:03 | ED Lower Extremity ---
General Chief Complaint: Lower Extremity Stated Complaint: POSS BLOOD CLOTS, LEG PAIN Nursing Triage Note: PT TO RM 5 VIA WC FROM [facility] WALK IN. PT REPORTS SEVERE LLE PAIN SX APPROX 1400 TODAY. PT BELIEVES SHE HAS A BLOOD CLOT D/T FAMILY HX. DORSALIS PEDIS PULSES PRESENT VIA DOPPLER. PT A&OX4, TEARFUL DURING TRIAGE, REDNESS NOTED TO BLE. Source: patient Exam Limitations: no limitations (MAHOGANY SMITH APRN) History of Present Illness Date Seen by Provider: Dec 25, 2022 Time Seen by Provider: 19:45 Initial Comments 52-year-old female presents to the ER with complaints of left lower leg swelling and pain since yesterday. States it became red today. Her right lower leg is also red, but patient states this is normal, states her left leg normally looks like her right leg. But now her left leg is more red. She was sent here from the [facility] walk-in clinic to be assessed for DVT. Denies history of DVTs or PEs. Reports history of cellulitis in her legs. Denies any recent flights or long trips. Denies any recent surgeries. Reports feeling fevers with chills. Denies chest pain, shortness of air. Past medical history includes 4 strokes, COPD, seizures, hypertension, "kidney problems," hepatitis C and is currently on treatment. Blood pressure is significantly elevated, patient states she took her BP medications today, states the hospital makes her very anxious. (MAHOGANY SMITH APRN) Allergies and Home Medications Allergies Coded Allergies: Sulfa (Sulfonamide Antibiotics) (Verified Allergy, Unknown, 04/28/21) adhesive tape (Verified Allergy, Unknown, 04/28/21) povidone-iodine (Verified Allergy, Unknown, 04/27/21) soap (Verified Allergy, Unknown, 04/27/21) Patient Home Medication List Home Medication List Reviewed: Yes (MAHOGANY SMITH APRN) Alprazolam (Alprazolam) 1 Mg Tablet, 1 MG PO TID PRN for ANXIETY, (Reported) Entered as Reported by: CALLI EDWARDS on 04/29/21 1414 Amlodipine Besylate (Amlodipine Besylate) 5 Mg Tablet, 5 MG PO DAILY, (Reported) Entered as Reported by: CALLI EDWARDS on 6/8/21 1414 Cefdinir (Cefdinir) 300 Mg Capsule, 300 MG PO BID Prescribed by: SAROJ ALARCON on 04/30/21958 Ciprofloxacin HCl (Ciprofloxacin HCl) 500 Mg Tablet, 500 MG PO BID Prescribed by: CUCO RHODES on 06/14/212021 Clindamycin HCl (Clindamycin HCl) 300 Mg Capsule, 300 MG PO TID Prescribed by: TERRY VICTOR MD on 09/13/22 0417 Clindamycin HCl (Clindamycin HCl) 300 Mg Capsule, 450 MG PO TID Prescribed by: Mahogany Smith on 12/25/222230 Cyclobenzaprine HCl (Cyclobenzaprine HCl) 10 Mg Tablet, 10 MG PO TID PRN for MUSCLE SPASMS, (Reported) Entered as Reported by: CALLI EDWARDS on 04/29/211413 Famotidine (Famotidine) 20 Mg Tablet, 20 MG PO BID, (Reported) Entered as Reported by: CALLI EDWARDS on 04/29/211413 Hydrocodone/Acetaminophen (Hydrocodone-Acetamin 5-325 mg) 1 Each Tablet, 1 EA PO BID PRN for PAIN-MODERATE (5-7), (Reported) Entered as Reported by: CALLI EDWARDS on 04/29/211413 Hydrocodone/Acetaminophen (Hydrocodone-Acetamin 5-325 mg) 1 Each Tablet, 1 TAB PO Q4H PRN for PAIN-MODERATE (5-7) Prescribed by: CUCO RHODES on 06/14/212021 Ibuprofen (Ibuprofen) 200 Mg Tablet, 400-600 MG PO Q8H PRN for PAIN-MILD (1-4), (Reported) Entered as Reported by: CALLI EDWARDS on 04/29/211413 Levothyroxine Sodium (Levothyroxine Sodium) 300 Mcg Tablet, 300 MCG PO DAILY, (Reported) Entered as Reported by: CALLI EDWARDS on 04/29/211413 Pantoprazole Sodium (Pantoprazole Sodium) 40 Mg Tablet.dr, 40 MG PO DAILY Prescribed by: SAROJ ALARCON on 04/30/21958 Prazosin HCl (Prazosin HCl) 2 Mg Capsule, 2 MG PO DAILY, (Reported) Entered as Reported by: CALLI EDWARDS on 04/29/211413 Venlafaxine HCl (Venlafaxine HCl ER) 150 Mg Cap.er.24h, 300 MG PO DAILY, (Reported) Entered as Reported by: CALLI EDWARDS on 04/29/21 1414 Review of Systems Constitutional: see HPI (MAHOGANY SMITH APRN) Past Fbgzwdv-Bmtvtf-Nhlwks Hx Patient Social History Tobacco Use?: Yes Tobacco type used: Cigarettes Smoking Status: Current Everyday Smoker Use of E-Cig and/or Vaping dev: No Substance use?: Yes Substance type: Marijuana Substance frequency: Daily Alcohol Use?: Yes Alcohol Frequency: Once in a while (MAHOGANY SMITH APRN) Immunizations Up To Date Influenza Vaccine Up-to-Date: No; Not Current First/Initial COVID19 Vaccinat: NONE Second COVID19 Vaccination Chad: NONE Third COVID19 Vaccination Date: NONE COVID19 Vaccine Asset Protection Greeter: NONE (MAHOGANY SMITH APRN) Seasonal Allergies Seasonal Allergies: No (MAHOGANY SMITH APRN) Past Medical History Surgery/Hospitalization HX: Copd, HTN, THYROID Surgeries: Yes Breast, Section, Gallbladder Respiratory: Yes Asthma, COPD Cardiac: No Neurological: Yes Stroke Genitourinary: No Gastrointestinal: No Musculoskeletal: Yes (Chronic pain) Endocrine: Yes (Morbid obesity) HEENT: No Cancer: No Psychosocial: Yes Integumentary: Yes (cellulitis) (MAHOGANY SMITH APRN) Family Medical History No Pertinent Family Hx (MAHOGANY SMITH APRN) Physical Exam Vital Signs Vital Signs - First Documented 12/25/22 19:24 Temp 36.8 Pulse 102 Resp 24 B/P (MAP) 195/129 (151) Pulse Ox 97 O2 Delivery Room Air (KOBY,WILLA K DO) Vital Signs Capillary Refill : Less Than 3 Seconds (MAHOGANY SMITH APRN) Height, Weight, BMI Height: '" Weight: lbs. oz. kg; 59.00 BMI Method: General Appearance: WD/WN, moderate distress Neck: normal inspection Cardiovascular: regular rate, rhythm, no edema, no gallop, no JVD, no murmur Respiratory: lungs clear, normal breath sounds, no respiratory distress, no accessory muscle use Legs: right leg non-tender; left leg soft tissue tenderness, left leg swelling, left leg other (Hot to touch, warmer than right leg, erythema) Feet: right foot other (Pedal pulses found by Doppler, foot warm to the touch) Neurologic/Psychiatric: alert, oriented x 3 (MAHOGANY SMITH APRN) Progress/Results/Core Measures Results/Orders Lab Results Laboratory Tests Test 12/25/22 20:30 Range/Units White Blood Count 11.1 H 4.3-11.0 10^3/uL Red Blood Count 4.37 3.80-5.11 10^6/uL Hemoglobin 13.1 11.5-16.0 g/dL Hematocrit 40 35-52 % Mean Corpuscular Volume 92 80-99 fL Mean Corpuscular Hemoglobin 30 25-34 pg Mean Corpuscular Hemoglobin Concent 33 32-36 g/dL Red Cell Distribution Width 14.1 10.0-14.5 % Platelet Count 207 130-400 10^3/uL Mean Platelet Volume 10.1 9.0-12.2 fL Immature Granulocyte % (Auto) 0 % Neutrophils (%) (Auto) 76 H 42-75 % Lymphocytes (%) (Auto) 15 12-44 % Monocytes (%) (Auto) 7 0-12 % Eosinophils (%) (Auto) 2 0-10 % Basophils (%) (Auto) 1 0-10 % Neutrophils # (Auto) 8.4 H 1.8-7.8 10^3/uL Lymphocytes # (Auto) 1.6 1.0-4.0 10^3/uL Monocytes # (Auto) 0.8 0.0-1.0 10^3/uL Eosinophils # (Auto) 0.2 0.0-0.3 10^3/uL Basophils # (Auto) 0.1 0.0-0.1 10^3/uL Immature Granulocyte # (Auto) 0.0 0.0-0.1 10^3/uL Prothrombin Time 12.7 12.2-14.7 SEC INR Comment 0.9 0.8-1.4 Activated Partial Thromboplast Time 28 24-35 SEC D-Dimer 1.01 H 0.00-0.49 UG/ML Sodium Level 135 135-145 MMOL/L Potassium Level 3.7 3.6-5.0 MMOL/L Chloride Level 103 98-107 MMOL/L Carbon Dioxide Level 19 L 21-32 MMOL/L Anion Gap 13 5-14 MMOL/L Blood Urea Nitrogen 27 H 7-18 MG/DL Creatinine 1.19 0.60-1.30 MG/DL Estimat Glomerular Filtration Rate 55 BUN/Creatinine Ratio 23 Glucose Level 105 70-105 MG/DL Lactic Acid Level 1.55 0.50-2.00 MMOL/L Calcium Level 9.9 8.5-10.1 MG/DL Corrected Calcium 9.5 8.5-10.1 MG/DL Total Bilirubin 0.7 0.1-1.0 MG/DL Aspartate Amino Transf (AST/SGOT) 36 H 5-34 U/L Alanine Aminotransferase (ALT/SGPT) 33 0-55 U/L Alkaline Phosphatase 72 40-136 U/L Total Protein 8.7 H 6.4-8.2 GM/DL Albumin 4.5 3.2-4.5 GM/DL (WILLA WHALEN DO) Micro Results Microbiology 12/25/22 Blood Culture - Preliminary, Resulted No growth (WILLA WHALEN DO) Vital Signs/I&O 12/25/22 12/25/22 19:24 22:35 Temp 36.8 Pulse 102 100 Resp 24 24 B/P (MAP) 195/129 (151) 181/86 Pulse Ox 97 98 O2 Delivery Room Air Room Air (JACQUELINE WHALENA K DO) Blood Pressure Mean: 151 Progress Progress Note #1: Time: 20:30 Progress Note Patient seen and evaluated, resting on bed, moderate distress. Based on exam and symptoms, differential diagnosis includes but is not limited to cellulitis, DVT. Patient is a difficult stick, wants to be discharged on antibiotics. Was able to talk patient into having lab draw for labs and to give her a shot of p ain medicine and a shot of antibiotics. Work-up initiated, CBC, CMP, D-dimer, coags, lactic acid, blood cultures. Patient refusing second set of blood cultures. Progress Note #2: Time: 21:21 Progress Note Labs reviewed. CBC shows slightly elevated WBC 11.1, CMP shows slightly decreased CO2 at 19, BUN elevated at 27, creatinine 1.19, GFR 53, AST 36, total protein 8.7. Lactic acid normal at 1.55, coags normal. No indications of sepsis. D-dimer elevated at 1.01, this is less than previous. Wells score for DVT is 2, moderate risk. Venous ultrasound ordered, education technician at the h ospital at this time due to another emergent ultrasound, and is willing to complete her ultrasound tonight. Progress Note #3: Time: 22:32 Progress Note Patient wanting to leave prior to the result of the venous ultrasound, patient will sign out AMA. Discussed the risks of her leaving AMA, patient verbalized understanding. Will call her tomorrow with results. Patient given antibiotic for the cellulitis and return precautions. Blood pressure still elevated, but better than when she arrived. Discussed following up with her primary regarding her blood pressure. (MAHOGANY SMITH APRN) Diagnostic Imaging Diagonstic Imaging: Ultrasound Comments [facility], [place] NAME: SASCHA KELLY [facility] REC#: [id number] PT STATUS: DEP ER : 1970 PHYSICIAN: MAHOGANY SMITH APRN ADMIT DATE: 12/25/22/ER Draft Date of Exam:12/25/22 US VENOUS LOWER EXT LT PROCEDURE: US left lower extremity venous. TECHNIQUE: Multiple real-time grayscale images were obtained over the left lower extremity in various projections. Additional duplex Doppler and color Doppler images were also obtained. INDICATION: Left leg swelling. There is no evidence of left lower extremity DVT. Left lower extremity deep venous system shows normal compressibility with normal response to augmentation and Valsalva. There is a probable Montero's cyst measuring 4.7 x 2.1 x 2.6 cm. IMPRESSION: 1. No evidence of left lower extremity DVT. 2. Montero's cyst. Dictated on workstation # [id number] Dict: 12/26/22 06 Trans: 12/26/22 0608 YURY [id number] Interpreted by: DEISI MUNIZ MD Electronically signed by: (MAHOGANY SMITH APRN) Departure Impression Primary Impression: Cellulitis of lower extremity Qualified Codes: L03.116 - Cellulitis of left lower limb Additional Impression: Montero cyst Qualified Codes: M71.22 - Synovial cyst of popliteal space [Montero], left knee Disposition: 01 HOME, SELF-CARE Condition: Against Medical Advice Departure-Patient Inst. Decision time for Depature: 22:32 (MAHOGANY SMITH APRN) Referrals: [facility] (PCP/Family) Primary Care Physician Patient Instructions: Cellulitis (Skin Infection), Adult (DC) Add. Discharge Instructions: Return if you develop high fever, nausea or vomiting, spreading of the redness, and severe pain at the infection site. Complete full course of antibiotic, even if you begin to feel better. You will receive a call in the morning if your ultrasound is positive for DVT. Follow-up with your primary care provider. All discharge instructions reviewed with patient and/or family. Voiced understanding. Scripts Clindamycin HCl (Clindamycin HCl) 300 Mg Capsule 450 MG PO TID for 7 Days, #21 CAP Prov: MAHOGANY SMITH APRN 12/25/22 ATTENDING PHYSICIAN NOTE: I WAS PHYSICALLY PRESENT ER PHYSICIAN, BUT I WAS NOT INVOLVED IN ANY DECISION MAKING OR ANY CARE OF THIS PATIENT, AND I AM NOT COLLABORATING PHYSICIAN. (WILLA WHALEN DO) MAHOGANY SMITH APRN Dec 25, 2022 20:03 WILLA WHALEN DO Dec 26, 2022 21:30
[2022-12-25] MEDS ORDERED: fentaNYL INJ 100 MCG/2 ML AMP IM ONE (20:15)
[2022-12-25] MEDS ORDERED: LIDOCAINE 1% INJ 20 ML VIAL INJ ONE (20:15)
[2022-12-25] MEDS ORDERED: cefTRIAXone 1,000 MG VIAL IM ONE (20:15)
[2022-12-25 20:49] LABS: BASOPHILS # (AUTO) 0.1 10^3/uL (0.0-0.1); BASOPHILS % (AUTO) 1 % (0-10); EOSINOPHILS # (AUTO) 0.2 10^3/uL (0.0-0.3); EOSINOPHILS % (AUTO) 2 % (0-10); HEMATOCRIT 40 % (35-52); HEMOGLOBIN 13.1 g/dL (11.5-16.0); LYMPHOCYTES # (AUTO) 1.6 10^3/uL (1.0-4.0); LYMPHOCYTES % (AUTO) 15 % (12-44); MEAN CORPUSCULAR HEMOGLOBIN 30 pg (25-34); MEAN CORPUSCULAR HGB CONC 33 g/dL (32-36); MEAN CORPUSCULAR VOLUME 92 fL (80-99); MEAN PLATELET VOLUME 10.1 fL (9.0-12.2); MONOCYTES # (AUTO) 0.8 10^3/uL (0.0-1.0); MONOCYTES % (AUTO) 7 % (0-12); NEUTROPHILS # (AUTO) 8.4 10^3/uL (1.8-7.8); NEUTROPHILS % (AUTO) 76 % (42-75); PLATELET COUNT 207 10^3/uL (130-400); WHITE BLOOD COUNT 11.1 10^3/uL (4.3-11.0)
[2022-12-25 20:56] LABS: FIBRIN DEGRADATION PRODUCTS 1.01 UG/ML (0.00-0.49); INR 0.9 (0.8-1.4); PROTHROMBIN TIME PATIENT 12.7 SEC (12.2-14.7)
[2022-12-25 21:05] LABS: ALBUMIN 4.5 GM/DL (3.2-4.5); BILIRUBIN,TOTAL 0.7 MG/DL (0.1-1.0); CALCIUM 9.9 MG/DL (8.5-10.1); CREATININE SERUM 1.19 MG/DL (0.60-1.30); POTASSIUM 3.7 MMOL/L (3.6-5.0); TOTAL PROTEIN 8.7 GM/DL (6.4-8.2)
[2022-12-25] MEDS ORDERED: CLIN-144 PO (22:31)
[2022-12-25 22:35] VITALS: BP 181/86
--- NOTE | 2022-12-26 06:09 | Diagnostic Imaging Report ---
PROCEDURE: US left lower extremity venous. TECHNIQUE: Multiple real-time grayscale images were obtained over the left lower extremity in various projections. Additional duplex Doppler and color Doppler images were also obtained. INDICATION: Left leg swelling. There is no evidence of left lower extremity DVT. Left lower extremity deep venous system shows normal compressibility with normal response to augmentation and Valsalva. There is a probable Montero's cyst measuring 4.7 x 2.1 x 2.6 cm. IMPRESSION: 1. No evidence of left lower extremity DVT. 2. Montero's cyst. Dictated by: Dictated on workstation # [id number]
== END 2022-12-25 22:37 | disposition home or self-care (01) ==
LOC: EDUNIT# 19:19 → ER 19:21
DX: L03.116 Cellulitis of left lower limb (principal); M71.22 Synovial cyst of popliteal space [Baker], left knee; I10 Essential (primary) hypertension; E66.01 Morbid (severe) obesity due to excess calories; F17.210 Nicotine dependence, cigarettes, uncomplicated; Z68.43 Body mass index [BMI] 50.0-59.9, adult; Z88.1 Allergy status to other antibiotic agents; Z28.310 Unvaccinated for COVID-19
CPT/HCPCS: 36415; 80053; 83605; 85025; 85379; 85610; 85730; 87040